=== PATIENT | male | born 1960 | race Caucasian/White ===

== ENCOUNTER 2016-11-27 10:18 | Inpatient (IN) | payer BC, MEDICARE ==
[2016-11-27] MEDS ORDERED: ACETAMINOPHEN TAB 500 MG TAB PO STA (10:37)
[2016-11-27] MEDS ORDERED: IPRATROPIUM-ALBUTEROL 3 ML NEB INHALATION STA (10:41)
--- NOTE | 2016-11-27 10:41 | ED ---
General Adult HPI - General Chief complaint: Shortness of Breath Stated complaint: Sent by PCP Chest Congestion Time Seen by Provider: 11/27/16 10:32 Source: patient, family, RN notes reviewed Mode of arrival: wheelchair Limitations: no limitations - History of Present Illness Initial comments: Patient is a pleasant 56-year-old male presenting to the emergency department complaining of difficulty in breathing. Patient has had cold symptoms for the past 7-10 days. Symptoms got worse from 3 days ago. Patient does have cough with brown to green sputum. Low-grade fevers. Patient does feel short of breath. Patient did go to his doctor's office who advised him to come to the emergency department. Patient did have similar symptoms once previously associated with pneumonia. No leg pain or leg swelling. - Related Data Home Medications Medication Instructions Recorded Confirmed Gemfibrozil [Lopid] 600 mg PO HS 12/08/13 11/27/16 Lisinopril [Zestril] 20 mg PO BID 12/08/13 11/27/16 Metoprolol Succinate [Toprol XL] 50 mg PO HS 12/08/13 11/27/16 amLODIPine [Norvasc] 5 mg PO DAILY 12/08/13 11/27/16 hydrALAZINE HCL [Apresoline] 50 mg PO TID 12/08/13 11/27/16 Aspirin 81 mg PO DAILY 08/28/14 11/27/16 Multivitamin [Men's Multi-Vitamin] 1 tab PO DAILY 06/03/15 11/27/16 Allergies Allergy/AdvReac Type Severity Reaction Status Date / Time No Known Allergies Allergy Verified 11/27/16 11:06 Review of Systems ROS Statement: Those systems with pertinent positive or pertinent negative responses have been documented in the HPI. ROS Other: All systems not noted in ROS Statement are negative. Constitutional: Reports: fever (Low-grade fevers) Eyes: Denies: eye pain ENT: Denies: ear pain, throat pain Respiratory: Reports: cough, dyspnea Cardiovascular: Denies: chest pain Endocrine: Reports: fatigue Gastrointestinal: Denies: abdominal pain Genitourinary: Denies: dysuria Musculoskeletal: Denies: back pain Skin: Denies: rash Neurological: Denies: headache Past Medical History Past Medical History: Deep Vein Thrombosis (DVT), Hyperlipidemia, Hypertension, Osteoarthritis (OA), Pneumonia, Pulmonary Embolus (PE) Additional Past Medical History / Comment(s): PE MAY 2016, DVT RIGHT LEG History of Any Multi-Drug Resistant Organisms: None Reported Past Surgical History: Bariatric Surgery, Heart Catheterization, Joint Replacement, Orthopedic Surgery Additional Past Surgical History / Comment(s): LAP BAND IN 2004 (BALLOON IS DEFLATED). rt shoulder surgery, raj knee arthroscopy, rt knee replacment, lt knee replacement, colonoscopy Past Anesthesia/Blood Transfusion Reactions: No Reported Reaction Additional Past Anesthesia/Blood Transfusion Reaction / Comment(s): was very itchy after spinal when rt knee was replaced Past Psychological History: No Psychological Hx Reported Smoking Status: Never smoker - Past Family History Father Family Medical History: No Reported History Additional Family Medical History / Comment(s): heatly at ge 83 Mother Family Medical History: No Reported History Additional Family Medical History / Comment(s): health at age 82 General Exam Limitations: no limitations General appearance: alert, in no apparent distress, obese Head exam: Present: atraumatic Eye exam: Present: normal appearance, PERRL ENT exam: Present: normal oropharynx Neck exam: Present: normal inspection Respiratory exam: Present: decreased breath sounds Cardiovascular Exam: Present: tachycardia GI/Abdominal exam: Present: soft. Absent: tenderness Extremities exam: Present: normal inspection. Absent: pedal edema, calf tenderness Neurological exam: Present: alert Psychiatric exam: Present: normal affect, normal mood Skin exam: Present: normal color Course Vital Signs 11/27/16 11/27/16 11/27/16 10:20 11:01 11:13 Temperature 100.0 F H Pulse Rate 110 H 102 H Respiratory 28 H 17 Rate Blood Pressure 147/81 O2 Sat by Pulse 83 L Oximetry 11/27/16 11/27/16 11/27/16 11:25 11:31 11:55 Temperature 98.3 F Pulse Rate 98 108 H 107 H Respiratory 20 18 Rate Blood Pressure 114/56 O2 Sat by Pulse 100 96 Oximetry 11/27/16 11/27/16 12:20 12:54 Temperature Pulse Rate 105 H 104 H Respiratory 20 18 Rate Blood Pressure 111/53 103/55 O2 Sat by Pulse 92 L 94 L Oximetry EKG Findings - EKG Comments: EKG Findings:: Sinus tachycardia 105. NE 158. QRS 148. QT 354. QTC 467. Normal axis. Left bundle branch block. Nonspecific ST-T. Medical Decision Making - Medical Decision Making Patient reevaluated and updated. Heparin started secondary to elevated troponin. Cardiology will be consult. Dr. Shipman has been paged for admission for Dr. Aguero. - Lab Data Result diagrams: 11/27/16 10:42 11/27/16 10:42 Lab Results 11/27/16 11/27/16 11/27/16 Range/Units 10:42 10:42 10:42 WBC 10.9 H (3.8-10.6) k/uL RBC 5.59 (4.30-5.90) m/uL Hgb 15.2 (13.0-17.5) gm/dL Hct 50.6 (39.0-53.0) % MCV 90.5 (80.0-100.0) fL MCH 27.2 (25.0-35.0) pg MCHC 30.0 L (31.0-37.0) g/dL RDW 16.7 H (11.5-15.5) % Plt Count 197 (150-450) k/uL Neutrophils % 82 % Lymphocytes % 7 % Monocytes % 9 % Eosinophils % 1 % Basophils % 1 % Neutrophils # 8.9 H (1.3-7.7) k/uL Lymphocytes # 0.7 L (1.0-4.8) k/uL Monocytes # 0.9 (0-1.0) k/uL Eosinophils # 0.1 (0-0.7) k/uL Basophils # 0.1 (0-0.2) k/uL Hypochromasia Marked Poikilocytosis Moderate Anisocytosis Slight PT 15.0 H (9.0-12.0) sec INR 1.5 H (<1.2) APTT 27.4 (22.0-30.0) sec Sodium 137 (137-145) mmol/L Potassium 4.2 (3.5-5.1) mmol/L Chloride 102 (98-107) mmol/L Carbon Dioxide 26 (22-30) mmol/L Anion Gap 9 mmol/L BUN 30 H (9-20) mg/dL Creatinine 1.14 (0.66-1.25) mg/dL Est GFR (MDRD) Af Amer >60 (>60 ml/min/1.73 sqM) Est GFR (MDRD) Non-Af >60 (>60 ml/min/1.73 sqM) Glucose 114 H (74-99) mg/dL Plasma Lactic Acid Pankaj (0.7-2.0) mmol/L Calcium 8.4 (8.4-10.2) mg/dL Total Bilirubin 1.1 (0.2-1.3) mg/dL AST 17 (17-59) U/L ALT 24 (21-72) U/L Alkaline Phosphatase 74 (38-126) U/L Total Creatine Kinase (55-170) U/L CK-MB (CK-2) (0.0-2.4) ng/mL CK-MB (CK-2) Rel Index Troponin I (0.000-0.034) ng/mL NT-Pro-B Natriuret Pep pg/mL Total Protein 6.5 (6.3-8.2) g/dL Albumin 3.2 L (3.5-5.0) g/dL Urine Color Urine Appearance (Clear) Urine pH (5.0-8.0) Ur Specific [place] (1.001-1.035) Urine Protein (Negative) Urine Glucose (UA) (Negative) Urine Ketones (Negative) Urine Blood (Negative) Urine Nitrite (Negative) Urine Bilirubin (Negative) Urine Urobilinogen (<2.0) mg/dL Ur Leukocyte Esterase (Negative) Urine RBC (0-5) /hpf Urine WBC (0-5) /hpf Ur Squamous Epith Cells (0-4) /hpf 11/27/16 11/27/16 11/27/16 Range/Units 10:42 10:42 10:42 WBC (3.8-10.6) k/uL RBC (4.30-5.90) m/uL Hgb (13.0-17.5) gm/dL Hct (39.0-53.0) % MCV (80.0-100.0) fL MCH (25.0-35.0) pg MCHC (31.0-37.0) g/dL RDW (11.5-15.5) % Plt Count (150-450) k/uL Neutrophils % % Lymphocytes % % Monocytes % % Eosinophils % % Basophils % % Neutrophils # (1.3-7.7) k/uL Lymphocytes # (1.0-4.8) k/uL Monocytes # (0-1.0) k/uL Eosinophils # (0-0.7) k/uL Basophils # (0-0.2) k/uL Hypochromasia Poikilocytosis Anisocytosis PT (9.0-12.0) sec INR (<1.2) APTT (22.0-30.0) sec Sodium (137-145) mmol/L Potassium (3.5-5.1) mmol/L Chloride (98-107) mmol/L Carbon Dioxide (22-30) mmol/L Anion Gap mmol/L BUN (9-20) mg/dL Creatinine (0.66-1.25) mg/dL Est GFR (MDRD) Af Amer (>60 ml/min/1.73 sqM) Est GFR (MDRD) Non-Af (>60 ml/min/1.73 sqM) Glucose (74-99) mg/dL Plasma Lactic Acid Pankaj 1.4 (0.7-2.0) mmol/L Calcium (8.4-10.2) mg/dL Total Bilirubin (0.2-1.3) mg/dL AST (17-59) U/L ALT (21-72) U/L Alkaline Phosphatase (38-126) U/L Total Creatine Kinase 136 (55-170) U/L CK-MB (CK-2) 2.6 H* (0.0-2.4) ng/mL CK-MB (CK-2) Rel Index 1.9 Troponin I 0.410 H* (0.000-0.034) ng/mL NT-Pro-B Natriuret Pep 4540 pg/mL Total Protein (6.3-8.2) g/dL Albumin (3.5-5.0) g/dL Urine Color Urine Appearance (Clear) Urine pH (5.0-8.0) Ur Specific [place] (1.001-1.035) Urine Protein (Negative) Urine Glucose (UA) (Negative) Urine Ketones (Negative) Urine Blood (Negative) Urine Nitrite (Negative) Urine Bilirubin (Negative) Urine Urobilinogen (<2.0) mg/dL Ur Leukocyte Esterase (Negative) Urine RBC (0-5) /hpf Urine WBC (0-5) /hpf Ur Squamous Epith Cells (0-4) /hpf 11/27/16 Range/Units 11:45 WBC (3.8-10.6) k/uL RBC (4.30-5.90) m/uL Hgb (13.0-17.5) gm/dL Hct (39.0-53.0) % MCV (80.0-100.0) fL MCH (25.0-35.0) pg MCHC (31.0-37.0) g/dL RDW (11.5-15.5) % Plt Count (150-450) k/uL Neutrophils % % Lymphocytes % % Monocytes % % Eosinophils % % Basophils % % Neutrophils # (1.3-7.7) k/uL Lymphocytes # (1.0-4.8) k/uL Monocytes # (0-1.0) k/uL Eosinophils # (0-0.7) k/uL Basophils # (0-0.2) k/uL Hypochromasia Poikilocytosis Anisocytosis PT (9.0-12.0) sec INR (<1.2) APTT (22.0-30.0) sec Sodium (137-145) mmol/L Potassium (3.5-5.1) mmol/L Chloride (98-107) mmol/L Carbon Dioxide (22-30) mmol/L Anion Gap mmol/L BUN (9-20) mg/dL Creatinine (0.66-1.25) mg/dL Est GFR (MDRD) Af Amer (>60 ml/min/1.73 sqM) Est GFR (MDRD) Non-Af (>60 ml/min/1.73 sqM) Glucose (74-99) mg/dL Plasma Lactic Acid Pankaj (0.7-2.0) mmol/L Calcium (8.4-10.2) mg/dL Total Bilirubin (0.2-1.3) mg/dL AST (17-59) U/L ALT (21-72) U/L Alkaline Phosphatase (38-126) U/L Total Creatine Kinase (55-170) U/L CK-MB (CK-2) (0.0-2.4) ng/mL CK-MB (CK-2) Rel Index Troponin I (0.000-0.034) ng/mL NT-Pro-B Natriuret Pep pg/mL Total Protein (6.3-8.2) g/dL Albumin (3.5-5.0) g/dL Urine Color Yellow Urine Appearance Clear (Clear) Urine pH 6.0 (5.0-8.0) Ur Specific [place] 1.018 (1.001-1.035) Urine Protein 1+ H (Negative) Urine Glucose (UA) Negative (Negative) Urine Ketones Negative (Negative) Urine Blood Negative (Negative) Urine Nitrite Negative (Negative) Urine Bilirubin Negative (Negative) Urine Urobilinogen 2.0 (<2.0) mg/dL Ur Leukocyte Esterase Negative (Negative) Urine RBC <1 (0-5) /hpf Urine WBC <1 (0-5) /hpf Ur Squamous Epith Cells 1 (0-4) /hpf - Radiology Data Radiology results: image reviewed (Chest x-ray consistent with CHF) Disposition Clinical Impression: Congestive heart failure Disposition: ADMITTED IP TO THIS [facility] Referrals: Jos Aguero III, MD [Primary Care Provider] - 1-2 days Decision Time: 13:11
[2016-11-27 11:02] LABS: Anisocytosis Slight; Basophils # (A) 0.1 k/uL (0-0.2); Basophils % (A) 1 %; CHCM 29.9; Eosinophils # (A) 0.1 k/uL (0-0.7); Eosinophils % (A) 1 %; HCT 50.6 % (39.0-53.0); HDW 4.07; HGB 15.2 gm/dL (13.0-17.5); Hypochromasia Marked; Luc # (Auto) 0.18; Luc % (Auto) 2; Lymphocytes # (A) 0.7 k/uL (1.0-4.8); Lymphocytes % (A) 7 %; MCH 27.2 pg (25.0-35.0); MCV 90.5 fL (80.0-100.0); Mean Platelet Volume 8.7; Monocytes # (A) 0.9 k/uL (0-1.0); Monocytes % (A) 9 %; Neutrophils # (A) 8.9 k/uL (1.3-7.7); Neutrophils % (A) 82 %; Poikilocytosis Moderate; RBC 5.59 m/uL (4.30-5.90); RDW 16.7 % (11.5-15.5); WBC 10.9 k/uL (3.8-10.6); WBC (Perox) 10.16
[2016-11-27 11:15] LABS: INR 1.5 (<1.2); Partial Thromboplastin Time 27.4 sec (22.0-30.0)
--- NOTE | 2016-11-27 11:21 | XR ---
EXAMINATION TYPE: XR chest 2V DATE OF EXAM: 11/27/2016 HISTORY: Fever. REFERENCE: Previous study dated 06/03/2015. FINDINGS: The heart is enlarged. There is vascular congestion and pulmonary edema. No definite pleura l fluid is seen. IMPRESSION: CHANGES MOST CONSISTENT WITH CONGESTIVE HEART FAILURE.
[2016-11-27 11:25] LABS: ALT 24 U/L (21-72); AST 17 U/L (17-59); Alkaline Phosphatase 74 U/L (38-126); Anion Gap 9 mmol/L; Blood Urea Nitrogen 30 mg/dL (9-20); Calcium 8.4 mg/dL (8.4-10.2); Carbon Dioxide 26 mmol/L (22-30); Chloride 102 mmol/L (98-107); Glucose 114 mg/dL (74-99); Non-African American GFR(MDRD) >60 (>60 ml/min/1.73 sqM); Potassium 4.2 mmol/L (3.5-5.1); Sodium 137 mmol/L (137-145); Total Bilirubin 1.1 mg/dL (0.2-1.3); Total Protein 6.5 g/dL (6.3-8.2)
[2016-11-27 11:44] LABS: Creatine Kinase MB 2.6 ng/mL (0.0-2.4); Troponin I 0.41 ng/mL (0.000-0.034)
[2016-11-27] MEDS ORDERED: HEPARIN SODIUM,PORCINE 5,000 UNIT/ML 1 ML VIAL IV ONE (12:01)
[2016-11-27] MEDS ORDERED: ASPIRIN 81 MG CHEW PO STA (12:01)
[2016-11-27] MEDS ORDERED: FUROSEMIDE 10 MG/ML 4 ML VIAL IV STA (12:01)
[2016-11-27] MEDS ORDERED: NITROGLYCERIN OINT 1 INCH/GM PACKET TOPICAL STA (12:01)
[2016-11-27] MEDS: HEPARIN SODIUM,PORCINE/D5W PMX 25,000 UNIT in DEXTROSE/WATER 1 500ML.BAG IV SCH (12:27)
[2016-11-27 12:29] LABS: Appearance,Urine Clear (Clear); Bilirubin,Urine Negative (Negative); Glucose,Urine (UA) Negative (Negative); Ketones,Urine Negative (Negative); Leukocyte Esterase,Urine Negative (Negative); Nitrite,Urine Negative (Negative); Particle Count 2379; Protein,Urine 1+ (Negative); RBC,Urine <1 /hpf (0-5); Specific Gravity,Urine 1.018 (1.001-1.035); Squamous Epithelial Cell,Urine 1 /hpf (0-4); UA Billing (MACRO vs. MICRO) MICRO; WBC,Urine <1 /hpf (0-5)
[2016-11-27] MEDS ORDERED: ASPIRIN 325 MG TAB PO STA (13:11)
[2016-11-27 15:52] LABS: Creatine Kinase MB 3.2 ng/mL (0.0-2.4); Troponin I 0.433 ng/mL (0.000-0.034)
[2016-11-27] MEDS: FUROSEMIDE 10 MG/ML 4 ML VIAL IV SCH (17:57)
[2016-11-27] MEDS: NITROGLYCERIN OINT 1 INCH/GM PACKET TOPICAL SCH ×2 (17:57→23:51)
[2016-11-28] MEDS: FUROSEMIDE 10 MG/ML 4 ML VIAL IV SCH ×4 (01:04→23:14)
[2016-11-28 01:57] LABS: Creatine Kinase MB 3.4 ng/mL (0.0-2.4)
[2016-11-28 01:58] LABS: Troponin I 0.397 ng/mL (0.000-0.034)
[2016-11-28] MEDS: ceFAZolin 2 GM in SODIUM CHLORIDE 0.9% 100 ML IVPB SCH ×4 (02:49→23:15)
[2016-11-28 07:26] LABS: Anisocytosis Slight; CH 26.7; CHCM 28.8; HCT 49.6 % (39.0-53.0); HDW 3.91; HGB 15.4 gm/dL (13.0-17.5); Hypochromasia Marked; MCHC 31.1 g/dL (31.0-37.0); MCV 93.2 fL (80.0-100.0); Mean Platelet Volume 9.2; Poikilocytosis Slight; RBC 5.32 m/uL (4.30-5.90); RDW 16.7 % (11.5-15.5); WBC 11.6 k/uL (3.8-10.6); WBC (Perox) 10.68
[2016-11-28 07:56] LABS: Add Differential Manual Differential
[2016-11-28 08:09] LABS: Nucleated Red Blood Cells 0 /100 WBC (0-0); Total Cells Counted 100
[2016-11-28 08:16] LABS: Manual Review Performed
[2016-11-28] MEDS ORDERED: ASPIRIN 325 MG TAB PO SCH (09:00)
[2016-11-28] MEDS: hydrALAZINE HCL 50 MG TAB PO SCH ×3 (09:04→23:14)
[2016-11-28] MEDS: LISINOPRIL 20 MG TAB PO SCH ×2 (09:04→19:55)
[2016-11-28] MEDS: amLODIPine 5 MG TAB PO SCH (09:05)
--- NOTE | 2016-11-28 09:13 | P.CRDCN ---
History of Present Illness Consult date: 11/28/16 Requesting physician: Lukas Shipman Consult reason: congestive heart failure Chief complaint: Cough and shortness of breath History of present illness: This is a 56-year-old gentleman who follows regularly with Dr. Chisholm in the office. He has a known history of hypertension, hyperlipidemia, morbid obesity, prior DVT and PE, nonischemic cardiomyopathy, heart cath was performed in 2005 which did not reveal any obstructive coronary artery disease. He presents to the hospital on this occasion with initial symptoms of an upper respiratory infection, he states that his had a very bad cold earlier last week, he started to get it on approximately . He states that he was coughing up green sputum, mild fever and chills, and progressively was getting more and more short of breath. He always has an element of peripheral edema however that also has been significantly worse. For this reason he came to the emergency room for further evaluation. EKG on arrival here showed a sinus tachycardia with a left bundle-branch block pattern. Temperature on arrival 100.0. Chest x-ray revealed congestive heart failure. White blood cell count 11.6, hemoglobin 15.4, potassium 4.2, BUN 30, creatinine 1.1. BNP level 4540. Troponins 0.41, 0.43, 0.39. Patient denies having any chest discomfort. The patient was initiated on IV Lasix in the emergency room, he states that he has been putting out significant amounts of urine. Patient had been on Xarelto as an outpatient for DVT and pulmonary embolism, this was apparently discontinued in December by his primary care physician. Past Medical History Past Medical History: Deep Vein Thrombosis (DVT), Hyperlipidemia, Hypertension, Osteoarthritis (OA), Pneumonia, Pulmonary Embolus (PE) Additional Past Medical History / Comment(s): PE MAY 2016, DVT RIGHT LEG History of Any Multi-Drug Resistant Organisms: None Reported Past Surgical History: Bariatric Surgery, Heart Catheterization, Joint Replacement, Orthopedic Surgery Additional Past Surgical History / Comment(s): LAP BAND IN 2004 (BALLOON IS DEFLATED). rt shoulder surgery, raj knee arthroscopy, rt knee replacment, lt knee replacement, colonoscopy/polypectomy-benign. Past Anesthesia/Blood Transfusion Reactions: No Reported Reaction Additional Past Anesthesia/Blood Transfusion Reaction / Comment(s): was very itchy after spinal when rt knee was replaced Smoking Status: Never smoker - Past Family History Father Family Medical History: No Reported History Additional Family Medical History / Comment(s): heatly at ge 83 Mother Family Medical History: No Reported History Additional Family Medical History / Comment(s): health at age 82 Medications and Allergies Home Medications Medication Instructions Recorded Confirmed Type Gemfibrozil [Lopid] 600 mg PO HS 12/08/13 11/27/16 History Lisinopril [Zestril] 20 mg PO BID 12/08/13 11/27/16 History Metoprolol Succinate [Toprol XL] 50 mg PO HS 12/08/13 11/27/16 History amLODIPine [Norvasc] 5 mg PO DAILY 12/08/13 11/27/16 History hydrALAZINE HCL [Apresoline] 50 mg PO TID 12/08/13 11/27/16 History Aspirin 81 mg PO DAILY 08/28/14 11/27/16 History Multivitamin [Men's Multi-Vitamin] 1 tab PO DAILY 06/03/15 11/27/16 History Allergies Allergy/AdvReac Type Severity Reaction Status Date / Time No Known Allergies Allergy Verified 11/27/16 11:06 Physical Exam Vitals: Vital Signs Temp Pulse Pulse Resp BP BP Pulse Ox 11/28/16 03:51 97 F L 82 16 120/67 91 L 11/28/16 03:50 18 11/28/16 00:00 84 18 110/67 91 L 11/27/16 20:00 97.8 F 89 18 116/57 91 L 11/27/16 18:48 98.9 F 108 H 18 136/70 91 L 11/27/16 15:06 99.0 F 109 H 18 93/48 94 L 11/27/16 14:27 108 H 17 97/47 94 L 11/27/16 13:30 104 H 17 108/54 93 L 11/27/16 12:54 104 H 18 103/55 94 L 11/27/16 12:20 105 H 20 111/53 92 L 11/27/16 11:55 98.3 F 107 H 18 114/56 96 11/27/16 11:31 108 H 11/27/16 11:25 98 20 100 11/27/16 11:13 102 H 11/27/16 11:01 17 11/27/16 10:20 100.0 F H 110 H 28 H 147/81 83 L Intake and Output 11/27/16 11/28/16 11/28/16 22:59 06:59 14:59 Intake Total 230.423 Output Total 850 1250 Balance -850 -1019.577 Intake: Intake, IV Titration 230.423 Amount Heparin Sodium,Porcine/ 230.423 D5w Pmx 25,000 unit In Dextrose/Water 1 500ml. bag @ 5.5 UNITS/KG/HR 19. 95 mls/hr IV .Q24H [facility] Rx #:[id number] Output: Urine 850 1250 Other: # Voids 4 Weight 184.6 kg PHYSICAL EXAMINATION: HEENT: Head is atraumatic, normocephalic. Pupils equal, round. Neck is supple. There is elevated jugular venous pressure. HEART EXAMINATION: Heart S1 and S2 systolic ejection murmur is heard CHEST EXAMINATION: On's reveal diminished air entry to bilateral bases with rales to the bases. ABDOMEN: Soft, obese, nontender. Bowel sounds are heard. No organomegaly noted. EXTREMITIES: 1+ peripheral pulses with 2+ evidence of peripheral edema . NEUROLOGIC patient is awake, alert and oriented -3. . Results 11/28/16 05:42 11/27/16 10:42 Cardiac Enzymes 11/27/16 11/27/16 11/27/16 Range/Units 10:42 10:42 14:44 AST 17 (17-59) U/L CK-MB (CK-2) 2.6 H* 3.2 H* (0.0-2.4) ng/mL Troponin I 0.410 H* 0.433 H* (0.000-0.034) ng/mL 11/28/16 Range/Units 00:53 AST (17-59) U/L CK-MB (CK-2) 3.4 H* (0.0-2.4) ng/mL Troponin I 0.397 H* (0.000-0.034) ng/mL Coagulation 11/27/16 11/27/16 11/28/16 Range/Units 10:42 18:49 05:42 PT 15.0 H (9.0-12.0) sec APTT 27.4 26.6 28.1 (22.0-30.0) sec CBC 11/27/16 11/28/16 Range/Units 10:42 05:42 WBC 10.9 H 11.6 H (3.8-10.6) k/uL RBC 5.59 5.32 (4.30-5.90) m/uL Hgb 15.2 15.4 (13.0-17.5) gm/dL Hct 50.6 49.6 (39.0-53.0) % Plt Count 197 191 (150-450) k/uL Comprehensive Metabolic Panel 11/27/16 Range/Units 10:42 Sodium 137 (137-145) mmol/L Potassium 4.2 (3.5-5.1) mmol/L Chloride 102 (98-107) mmol/L Carbon Dioxide 26 (22-30) mmol/L BUN 30 H (9-20) mg/dL Creatinine 1.14 (0.66-1.25) mg/dL Glucose 114 H (74-99) mg/dL Calcium 8.4 (8.4-10.2) mg/dL AST 17 (17-59) U/L ALT 24 (21-72) U/L Alkaline Phosphatase 74 (38-126) U/L Total Protein 6.5 (6.3-8.2) g/dL Albumin 3.2 L (3.5-5.0) g/dL Current Medications Generic Name Dose Route Start Last Admin Trade Name Freq PRN Reason Stop Dose Admin Amlodipine Besylate 5 mg 11/28/16 09:00 Norvasc PO DAILY [facility] Aspirin 325 mg 11/28/16 09:00 Aspirin PO DAILY [facility] Furosemide 40 mg 11/27/16 16:00 11/28/16 08:37 Lasix IV 40 mg Q8HR [facility] Administration Gemfibrozil 600 mg 11/28/16 21:00 Lopid PO HS [facility] Heparin Sodium (Porcine) 0 unit 11/27/16 12:01 Heparin IV PER PROTOCOL PRN Low PTT Protocol Hydralazine HCl 50 mg 11/28/16 09:00 Apresoline PO TID [facility] Heparin Sodium/Dextrose 25,000 500 mls @ 19.95 mls/hr 11/27/16 12:15 00:00 unit/ IV Solution IV 8.5 units/kg/hr .Q24H [facility] 30.84 mls/hr Protocol Titration 5.5 UNITS/KG/HR Cefazolin Sodium 2 gm/ Sodium 100 mls @ 100 mls/hr 11/28/16 02:00 11/28/16 08 :38 Chloride IVPB 100 mls/hr Q8HR [facility] Administration Lisinopril 20 mg 11/28/16 09:00 Zestril PO BID [facility] Metoprolol Succinate 50 mg 11/28/16 21:00 Toprol Xl PO HS [facility] Multivitamins 1 each 11/28/16 12:00 Theragran PO DAILY@1200 [facility] Nitroglycerin 1 inch 11/27/16 18:00 11/27/16 23:51 Nitro-Bid Oint TOPICAL Not Given QID [facility] Sodium Chloride 10 ml 11/27/16 21:00 11/27/16 23:51 Saline Flush IV Not Given BID [facility] Intake and Output 11/27/16 11/28/16 11/28/16 22:59 06:59 14:59 Intake Total 230.423 Output Total 850 1250 Balance -850 -1019.577 Intake: Intake, IV Titration 230.423 Amount Heparin Sodium,Porcine/ 230.423 D5w Pmx 25,000 unit In Dextrose/Water 1 500ml. bag @ 5.5 UNITS/KG/HR 19. 95 mls/hr IV .Q24H [facility] Rx #:[id number] Output: Urine 850 1250 Other: # Voids 4 Weight 184.6 kg 11/28/16 05:42 11/27/16 10:42 EKG Interpretations (text) EKG shows a sinus tachycardia with left bundle branch block pattern Assessment and Plan Plan: Assessment and plan #1 diastolic congestive cardiac failure acute on chronic #2 hypertension #3 hyperlipidemia #4 history of DVT with pulmonary embolism # 5 morbid obesity #6 upper respiratory infection, on IV antibiotics #7 abnormal troponins, likely secondary to oxygen supply and demand mismatch Plan We will repeat an echocardiogram with Doppler study. Continue diuresing with IV Lasix 40 mg every 8 hourly. Decrease aspirin to 81 mg daily. Discontinue Nitropaste. Obtain a d-dimer, rule out the possibility of recurrent pulmonary embolism. Further recommendations to follow. DNP note has been reviewed, I agree with a documented findings and plan of care. Patient was seen and examined.
--- NOTE | 2016-11-28 10:17 | ECHOF ---
Referral Reason:chf MEASUREMENTS -------- HEIGHT: 182.9 cm WEIGHT: 181.4 kg BP: 120/67 RVIDd: 4.3 cm (< 3.3) IVSd: 1.6 cm (0.6 - 1.1) LVIDd: 5.2 cm (3.9 - 5.3) LVPWd: 1.5 cm (0.6 - 1.1) IVSs: 1.9 cm LVIDs: 4.3 cm LVPWs: 1.8 cm LA Diam: 3.6 cm (2.7 - 3.8) LAESV Index (A-L): 33.67 ml/m Ao Diam: 3.2 cm (2.0 - 3.7) AV Cusp: 1.8 cm (1.5 - 2.6) MV EXCURSION: 21.085 mm (> 18.000) MV EF SLOPE: 147 mm/s (70 - 150) EPSS: 1.0 cm MV E Ok: 1.22 m/s MV DecT: 152 ms MV A Ok: 1.23 m/s MV E/A Ratio: 0.99 AV maxP.24 mmHg AV meanP.61 mmHg RAP: 15.00 mmHg RVSP: 40.53 mmHg FINDINGS -------- This was a technically difficult study with suboptimal views. The left ventricular size is normal. There is moderate concentric left ventricular hypertrophy. Overall left ventricular systolic function is mildly impaired with, an EF between 45 - 50 %. The right ventricle is severely enlarged. LA is midly dilated 29-33ml/m2. The right atrium was not well visualized. 1.5mg of Definity was utilized for enhancement of images There is mild aortic valve sclerosis. There is mild aortic stenosis present. Peak/mean gradient across the Aortic Valve is 18.24mmHg / 10.61mmHg. The mitral valve leaflets are mildly thickened. Mild mitral annular calcification present. There is trace to mild mitral regurgitation. Mild tricuspid regurgitation present. There is mild pulmonary hypertension. The right ventricular systolic pressure, as measured by Doppler, is 40.53mmHg. The pulmonic valve was not well visualized. The aortic root size is normal. The inferior vena cava is dilated with no significant inspiratory collapse which is consistent estimated right atrial pressure of >15 mmHg. There is no pericardial effusion. CONCLUSIONS -------- 1. This was a technically difficult study with suboptimal views. 2. There is mild aortic stenosis present. 3. Peak/mean gradient across the Aortic Valve is 18.24mmHg / 10.61mmHg. 4. The mitral valve leaflets are mildly thickened. 5. Mild mitral annular calcification present. 6. There is trace to mild mitral regurgitation. 7. Mild tricuspid regurgitation present. 8. There is mild pulmonary hypertension. 9. The right ventricular systolic pressure, as measured by Doppler, is 40.53mmHg. 10. The pulmonic valve was not well visualized. 11. The aortic root size is normal. 12. The left ventricular size is normal. 13. The inferior vena cava is dilated with no significant inspiratory collapse which is consistent estimated right atrial pressure of >20 mmHg. 14. There is no pericardial effusion. 15. There is moderate concentric left ventricular hypertrophy. 16. Overall left ventricular systolic function is mildly impaired with, an EF between 45 - 50 %. 17. The right ventricle is severely enlarged. 18. LA is midly dilated 29-33ml/m2. 19. The right atrium was not well visualized. 20. 1.5mg of Definity was utilized for enhancement of images 21. There is mild aortic valve sclerosis. LENGTH CONTROL TESTER: Teresa Thomas RDCS
[2016-11-28] MEDS: NITROGLYCERIN OINT 1 INCH/GM PACKET TOPICAL SCH (10:22)
[2016-11-28] MEDS: HEPARIN SODIUM,PORCINE 5,000 UNIT/ML 1 ML VIAL IV PRN ×2 (12:01→19:20)
[2016-11-28] MEDS: MULTIVITAMINS, THERA 1 EACH TAB PO SCH (12:06)
[2016-11-28] MEDS ORDERED: RX INFO: IV CONTRAST WAS GIVEN 1 EACH MISC MISCELLANE PRN (13:02)
--- NOTE | 2016-11-28 14:03 | HP ---
DATE OF ADMISSION: 11/27/16 CHIEF COMPLAINT: Bilateral leg swelling and shortness of breath. HISTORY OF PRESENT ILLNESS: This is a 56-year-old gentleman with a past medical history of DVT, hypertension, hyperlipidemia, history of DJD, history of pneumonia, history of pulmonary embolism, history of bariatric surgery, being followed by Dr. Aguero in the outpatient setting was complaining of increasing shortness of breath and some cough and congestion. The cough was associated with brown, green sputum. The patient also had some low grade fevers. The patient came to [facility] for further evaluation and treatment. The patient also had bilateral leg swelling also. Congestive heart failure was suspected. The patient was given diuretics. The patient is being closely monitored at this time. The initial evaluation showed NT-ProBNP of 4540. White count elevated to 10.9. There is no history of any headache, loss of consciousness or seizures. Past medical history of DVT, hypertension, hyperlipidemia, DJD, pneumonia, pulmonary embolism, bariatric surgery. Medications prior to admission are: 1. Metoprolol 50 mg q.h.s. 2. Lopid 600 mg q.h.s. 3. Apresoline 50 mg t.i.d. 4. Norvasc 5 mg daily. 5. Multivitamins one po daily. 6. Zestril 20 mg b.i.d. 7. Aspirin 81 mg daily. ALLERGIES: None. FAMILY HISTORY: No history of heart disease or strokes in the family. SOCIAL HISTORY: No history of smoking. Occasional alcohol intake. REVIEW OF SYSTEMS: ENT: No diminished vision. No diminished hearing. Cardiovascular: As mentioned earlier. Respiratory: No cough, hemoptysis. GI: No nausea or vomiting. : No dysuria. Nervous system: No numbness or weakness. Allergy/Immunology: No asthma or hayfever. Musculoskeletal: As mentioned earlier. Hematology/Oncology: No history of anemia. Endocrine: No history of diabetes mellitus or hypothyroidism. Constitutional: As mentioned earlier. Dermatology: Negative. Rheumatology: Negative. Psychiatry: As mentioned earlier. PHYSICAL EXAMINATION: Alert and oriented times three. Pulse 84. Blood pressure 120/69. Respiratory rate 18, temperature 97.8. Pulse ox 91% on 3 L. HEENT: Conjunctivae normal. Oral mucosa moist. NECK: No JVD. No carotid bruit. Cardiovascular: S1, S2 muffled. No S3, no S4. Respiratory: Breath sounds diminished at the bases. Scattered rhonchi and crackles. Abdomen is soft. Obese. Nontender. No mass palpable. Legs: Bilateral leg edema. cellulitis also present. Nervous system: Higher functions as mentioned earlier. Moves all four limbs. No focal motor or sensory deficits. Lymphatics: No lymph nodes palpable in the neck, axillae or groin. Joints: No active deforming arthropathy. SKIN: No ulcer, rash or bleeding. LABS: WBC 10.9, otherwise troponin 0.041, albumin 3.2. ASSESSMENT: 1. Shortness of breath, possible congestive heart failure acute exacerbation. 2. Troponin 0.433, possibly rule out acute non-ST segment myocardial infarction. 3. Acute cellulitis of both legs. 4. Increased WBC. 5. Morbid obesity with BMI 54.2. 6. Deep venous thrombosis. 7. History of pulmonary embolism. 8. History of degenerative joint disease. 9. History of pneumonia. 10. History of hypertension. 11. History of hyperlipidemia. 12. History of lap band surgery. RECOMMENDATIONS AND DISCUSSION: In this 56-year-old gentleman who presented with multiple complex medical issues, we will monitor the patient closely. Continue the current medications. Continue symptomatic treatment. We will initiate IV heparin as well as IV Lasix. 2D echo with Doppler will be ordered. Cardiology has been consulted. Repeat labs also will be ordered. I would also recommend empiric antibiotics for cellulitis. Otherwise prognosis is guarded because of the . Otherwise continue to monitor. Home medications will be adjusted. Discussed with the patient, understands and agrees. A copy of dictation is being forwarded to Dr. Aguero who is the primary physician. [facility]
--- NOTE | 2016-11-28 16:07 | CT ---
EXAMINATION TYPE: CT angio chest DATE OF EXAM: 11/28/2016 COMPARISON: NONE HISTORY: Shortness of breath CONTRAST: CT chest with contrast and 3D reconstruction with MIP imaging injected with 80ml of omni 350 Contrast-enhanced CT of the chest was performed through the course of the pulmonary arteries with reji g and mediastinal window settings submitted. 3D reconstruction with MIP imaging was also performed. PULMONARY ARTERIES: Limited by timing of the contrast bolus. Large central embolus is not seen with c ertainty. Peripheral embolism would be difficult to exclude. Prominence of the pulmonary arteries may reflect pulmonary arterial hypertension. LUNGS: Basilar atelectasis noted. No evidence for atelectasis. Scattered pulmonary nodules. No pleura l effusion. MEDIASTINUM: Thoracic aorta is of normal caliber . The heart is not enlarged. No evidence for media stinal mass. No mediastinal lymph nodes greater than 1cm. HILAR STRUCTURES: No evidence for mass. No hilar lymph nodes greater than 1 cm. UPPER ABDOMEN: No significant abnormality is seen. IMPRESSION: 1. Limited by timing of the contrast bolus. Large central embolus is not seen with certainty. It is difficult to exclude peripheral emboli. 2. Scattered pulmonary nodules as well as basilar compressive atelectasis.
[2016-11-28] MEDS: HEPARIN SODIUM,PORCINE/D5W PMX 25,000 UNIT in DEXTROSE/WATER 1 500ML.BAG IV SCH ×2 (17:22→19:23)
[2016-11-28] MEDS: GEMFIBROZIL 600 MG TAB PO SCH (19:55)
[2016-11-28] MEDS: METOPROLOL SUCCINATE (ER) 50 MG TAB.ER.24H PO SCH (19:55)
[2016-11-29 06:38] LABS: Anion Gap 9 mmol/L; Blood Urea Nitrogen 25 mg/dL (9-20); Calcium 8.6 mg/dL (8.4-10.2); Carbon Dioxide 33 mmol/L (22-30); Chloride 99 mmol/L (98-107); Glucose 106 mg/dL (74-99); Non-African American GFR(MDRD) >60 (>60 ml/min/1.73 sqM); Potassium 4.7 mmol/L (3.5-5.1); Sodium 141 mmol/L (137-145)
[2016-11-29 07:13] LABS: Anisocytosis Slight; Basophils % (A) 1 %; CH 26.5; CHCM 28.8; Eosinophils # (A) 0.2 k/uL (0-0.7); Eosinophils % (A) 2 %; HCT 51.7 % (39.0-53.0); HDW 3.96; HGB 15.3 gm/dL (13.0-17.5); Hypochromasia Marked; Luc # (Auto) 0.17; Luc % (Auto) 2; Lymphocytes # (A) 0.8 k/uL (1.0-4.8); Lymphocytes % (A) 9 %; MCH 27.3 pg (25.0-35.0); MCHC 29.5 g/dL (31.0-37.0); MCV 92.4 fL (80.0-100.0); Mean Platelet Volume 8.9; Monocytes # (A) 0.7 k/uL (0-1.0); Monocytes % (A) 8 %; Neutrophils # (A) 6.3 k/uL (1.3-7.7); Neutrophils % (A) 78 %; Poikilocytosis Slight; RBC 5.59 m/uL (4.30-5.90); RDW 16.4 % (11.5-15.5); WBC 8.2 k/uL (3.8-10.6); WBC (Perox) 7.54
[2016-11-29 07:42] LABS: Polychromasia Present
[2016-11-29 07:45] LABS: Manual Review Performed
[2016-11-29] MEDS: MULTIVITAMINS, THERA 1 EACH TAB PO SCH (08:40)
[2016-11-29] MEDS: ASPIRIN 81 MG CHEW PO SCH (08:40)
[2016-11-29] MEDS: ceFAZolin 2 GM in SODIUM CHLORIDE 0.9% 100 ML IVPB SCH ×3 (08:40→23:16)
[2016-11-29] MEDS: amLODIPine 5 MG TAB PO SCH (08:40)
[2016-11-29] MEDS: FUROSEMIDE 10 MG/ML 4 ML VIAL IV SCH ×3 (08:40→23:15)
[2016-11-29] MEDS: LISINOPRIL 20 MG TAB PO SCH ×2 (08:40→20:07)
[2016-11-29] MEDS: hydrALAZINE HCL 50 MG TAB PO SCH ×3 (08:40→20:08)
[2016-11-29 12:18] VITALS: BMI 53.7
--- NOTE | 2016-11-29 13:19 | XR ---
EXAMINATION TYPE: XR chest 1V portable DATE OF EXAM: 11/29/2016 COMPARISON: Prior chest x-ray 11/27/2016, chest CT 11/28/2016 HISTORY: Congestive heart failure, cough and congestion TECHNIQUE: Single frontal view of the chest is obtained. FINDINGS: Central vascularity and interstitium are prominent, there is mixed airspace disease. The h eart is enlarged. No pneumothorax or evident effusion. There are overlying cardiac leads. IMPRESSION: Findings compatible with congestive heart failure. There may be some worsening pulmonary edema. Correlate to exclude pneumonia.
--- NOTE | 2016-11-29 14:50 | PN ---
DATE OF SERVICE: 11/28/16 This 56-year-old gentleman admitted with CHF acute exacerbation is being closely monitored. The patient is on IV Lasix at this time. The 2D echo with Doppler showed ejection fraction 45 to 50% as well as IVC dilatation. There is no history of any fevers, rigors or chills. No history of headache, loss of consciousness or seizures. Mild aortic stenosis was also noted. On exam, alert and oriented times three. Pulse is 96. Blood pressure is 108/ 50. Respiratory rate 18. Temperature 97.7, pulse ox 97% on 4 L. HEENT: Conjunctivae normal. NECK: No JVD. Cardiovascular: S1, S2 muffled. Respiratory: Breath sounds diminished at the bases. A few scattered rhonchi and no crackles. Abdomen is soft. Nontender. Legs: bilateral leg swelling and cellulitis also present. The labs are noted. Chest CTA reviewed, showed limited timing. Scattered pulmonary nodules. FINAL ASSESSMENT: 1. Congestive heart failure, acute exacerbation with acute on chronic systolic dysfunction, ejection fraction 40 to 45%. 2. Troponin 0.433 rule out acute non-ST elevation myocardial infarction. 3. Acute cellulitis of both legs. 4. Increased WBC. 5. Morbid obesity with BMI 54.2. 6. Deep venous thrombosis history. 7. Pulmonary embolism. 8. History of degenerative joint disease. 9. History of pneumonia. 10. Hypertension. 11. History of hyperlipidemia. 12. History of lap band surgery. RECOMMENDATIONS AND DISCUSSION: Recommend to continue the current medications, continue with monitoring and symptomatic treatment. Continue with Lasix. Closely follow with cardiology. Continue with empiric antibiotics. Continue beta blockers and [place] inhibitors. Further recommendations to follow. Fluid restriction also has been recommended. MTDD
--- NOTE | 2016-11-29 15:14 | P.PN ---
Subjective This is a 56-year-old gentleman who follows regularly with Dr. Chisholm in the office. He has a known history of hypertension, hyperlipidemia, morbid obesity, prior DVT and PE, nonischemic cardiomyopathy, heart cath was performed in 2005 which did not reveal any obstructive coronary artery disease. He presents to the hospital on this occasion with initial symptoms of an upper respiratory infection, he states that his had a very bad cold earlier last week, he started to get it on approximately . He states that he was coughing up green sputum, mild fever and chills, and progressively was getting more and more short of breath. He always has an element of peripheral edema however that also has been significantly worse. For this reason he came to the emergency room for further evaluation. EKG on arrival here showed a sinus tachycardia with a left bundle-branch block pattern. Temperature on arrival 100.0. Chest x-ray revealed congestive heart failure. White blood cell count 11.6, hemoglobin 15.4, potassium 4.2, BUN 30, creatinine 1.1. BNP level 4540. Troponins 0.41, 0.43, 0.39. Patient denies having any chest discomfort. The patient was initiated on IV Lasix in the emergency room, he states that he has been putting out significant amounts of urine. Patient had been on Xarelto as an outpatient for DVT and pulmonary embolism, this was apparently discontinued in December by his primary care physician. 11/29/2016. Patient was seen and examined this morning, overall he is feeling better. CT of the chest was performed which ruled out any large pulmonary embolism. His Xarelto was actually discontinued by Dr. Rosa or heat are as an outpatient we will have them see the patient in consult here and determine whether or not the patient should be reinitiated on blood thinners here. His weight is down 5 kg today, BUN 25, creatinine 1.0. Objective - Vital Signs Vital signs: Vital Signs Temp 98.6 F 11/29/16 12:00 Pulse 83 11/29/16 12:00 Resp 18 11/29/16 12:00 BP 126/60 11/29/16 12:00 Pulse Ox 91 L 11/29/16 12:00 Intake & Output 11/28/16 11/29/16 11/29/16 18:59 06:59 18:59 Intake Total 1029.577 838.321 540 Output Total 2100 1475 450 Balance -1070.423 -876.679 90 Weight 179.7 kg 179.7 kg Intake: Intake, IV Titration 369.577 358.321 Amount Heparin Sodium,Porcine/ 269.577 358.321 D5w Pmx 25,000 unit In Dextrose/Water 1 500ml. bag @ 5.5 UNITS/KG/HR 19. 95 mls/hr IV .Q24H [facility] Rx #:[id number] ceFAZolin 2 gm In Sodium 100 Chloride 0.9% 100 ml @ 100 mls/hr IVPB Q8HR [facility] Rx#:[id number] Oral 660 480 540 Output: Urine 2100 1475 450 Other: Voiding Method Urinal # Voids 2 1 # Bowel Movements 0 0 - Exam PHYSICAL EXAMINATION: HEENT: Head is atraumatic, normocephalic. Pupils equal, round. Neck is supple. There is elevated jugular venous pressure. HEART EXAMINATION: Heart S1 and S2 systolic ejection murmur is heard CHEST EXAMINATION: On's reveal diminished air entry to bilateral bases with rales to the bases. ABDOMEN: Soft, obese, nontender. Bowel sounds are heard. No organomegaly noted. EXTREMITIES: 1+ peripheral pulses with 2+ evidence of peripheral edema . NEUROLOGIC patient is awake, alert and oriented -3. - Labs CBC & Chem 7: 11/29/16 06:02 11/29/16 06:02 Labs: Abnormal Lab Results - Last 24 Hours (Table) 11/28/16 11/29/16 11/29/16 Range/Units 18:00 00:51 06:02 MCHC 29.5 L (31.0-37.0) g/dL RDW 16.4 H (11.5-15.5) % Lymphocytes # 0.8 L (1.0-4.8) k/uL APTT 32.9 H 37.7 H (22.0-30.0) sec Carbon Dioxide (22-30) mmol/L BUN (9-20) mg/dL Glucose (74-99) mg/dL 11/29/16 Range/Units 06:02 MCHC (31.0-37.0) g/dL RDW (11.5-15.5) % Lymphocytes # (1.0-4.8) k/uL APTT (22.0-30.0) sec Carbon Dioxide 33 H (22-30) mmol/L BUN 25 H (9-20) mg/dL Glucose 106 H (74-99) mg/dL Microbiology - Last 24 Hours (Table) 11/27/16 10:42 Blood Culture - Preliminary Blood No Growth after 48 hours 11/27/16 11:45 Urine Culture - Final Urine,Voided 11/27/16 14:44 Blood Culture - Preliminary Blood No Growth after 24 hours Assessment and Plan Plan: Assessment and plan #1 diastolic congestive cardiac failure acute on chronic #2 hypertension #3 hyperlipidemia #4 history of DVT with pulmonary embolism # 5 morbid obesity #6 upper respiratory infection, on IV antibiotics #7 abnormal troponins, likely secondary to oxygen supply and demand mismatch Plan Cardiac gram with Doppler study was performed which revealed an ejection fraction of 45-50%. We will continue current dose of IV Lasix. CT of the chest ruled out any large pulmonary embolism, nondiagnostic for a possible small PE. We will consult pulmonary who had initially discontinued his Xarelto after his PE to see whether or not the patient should be reinitiated on at this time. DNP note has been reviewed, I agree with a documented findings and plan of care. Patient was seen and examined.
[2016-11-29] MEDS ORDERED: DEXTROSE 5% IN WATER 100 ML with AMIODARONE 150 MG IV ONE (16:18)
[2016-11-29] MEDS: AMIODARONE 450 MG in DEXTROSE 5% IN WATER 250 ML IV SCH ×4 (17:45→23:16)
[2016-11-29] MEDS: GEMFIBROZIL 600 MG TAB PO SCH (20:07)
[2016-11-29] MEDS: METOPROLOL SUCCINATE (ER) 50 MG TAB.ER.24H PO SCH (20:08)
[2016-11-29] MEDS: HEPARIN SODIUM,PORCINE/D5W PMX 25,000 UNIT in DEXTROSE/WATER 1 500ML.BAG IV SCH (23:35)
[2016-11-30 06:20] LABS: Anisocytosis Slight; CH 26.7; HCT 51.3 % (39.0-53.0); HDW 3.88; HGB 14.9 gm/dL (13.0-17.5); Hypochromasia Marked; MCH 26.7 pg (25.0-35.0); MCV 92.1 fL (80.0-100.0); Mean Platelet Volume 8.4; Poikilocytosis Slight; RBC 5.57 m/uL (4.30-5.90); RDW 16.5 % (11.5-15.5); WBC (Perox) 7.14
[2016-11-30 06:37] LABS: Add Differential Manual Differential
[2016-11-30 06:40] LABS: Nucleated Red Blood Cells 2 /100 WBC (0-0); Total Cells Counted 200
[2016-11-30 06:41] LABS: Manual Review Performed; WBC 7.5 k/uL (3.8-10.6)
[2016-11-30 06:52] LABS: Anion Gap 7 mmol/L; Blood Urea Nitrogen 21 mg/dL (9-20); Calcium 8.3 mg/dL (8.4-10.2); Carbon Dioxide 30 mmol/L (22-30); Chloride 102 mmol/L (98-107); Glucose 107 mg/dL (74-99); Non-African American GFR(MDRD) >60 (>60 ml/min/1.73 sqM); Potassium 4.2 mmol/L (3.5-5.1); Sodium 139 mmol/L (137-145)
[2016-11-30] MEDS: HEPARIN SODIUM,PORCINE/D5W PMX 25,000 UNIT in DEXTROSE/WATER 1 500ML.BAG IV SCH (07:10)
[2016-11-30] MEDS: amLODIPine 5 MG TAB PO SCH (08:19)
[2016-11-30] MEDS: FUROSEMIDE 10 MG/ML 4 ML VIAL IV SCH (08:19)
[2016-11-30] MEDS: hydrALAZINE HCL 50 MG TAB PO SCH ×3 (08:19→21:39)
[2016-11-30] MEDS: ASPIRIN 81 MG CHEW PO SCH (08:19)
[2016-11-30] MEDS: ceFAZolin 2 GM in SODIUM CHLORIDE 0.9% 100 ML IVPB SCH ×3 (08:19→23:22)
[2016-11-30] MEDS: LISINOPRIL 20 MG TAB PO SCH ×2 (08:19→21:38)
[2016-11-30] MEDS: AMIODARONE 450 MG in DEXTROSE 5% IN WATER 250 ML IV SCH ×2 (08:20)
--- NOTE | 2016-11-30 09:48 | P.PN ---
Subjective Date of service 11/29/2016. Personal being dictated for Dr. Judd. Interval history: This is a 56-year-old gentleman admitted with acute CHF exacerbation, cellulitis and multiple other medical issues. Patient has history of DVT and PE, states that Xarelto was discontinued approximately 1 year ago. Chest CTA Limited study, reporting large central embolus possibly with possible peripheral emboli, scattered pulmonary nodules and basilar compressive atelectasis. Maintained on heparin drip and Lasix IV push. Diuresing well with 24-hour I&O reflecting a negative fluid balance. Any bleeding with cane to bathroom, desats with exertion. Productive cough, green sputum. Denies chest pain, or palpitations. Afebrile. Objective - Vital Signs Vital signs: Vital Signs Temp 98.2 F 11/29/16 15:37 Pulse 83 11/29/16 15:37 Resp 18 11/29/16 15:37 BP 132/63 11/29/16 15:37 Pulse Ox 90 L 11/29/16 15:37 Intake & Output 11/28/16 11/29/16 11/29/16 18:59 06:59 18:59 Intake Total 1029.577 838.321 540 Output Total 2100 1475 450 Balance -1070.423 -636.679 90 Weight 179.7 kg 179.7 kg Intake: Intake, IV Titration 369.577 358.321 Amount Heparin Sodium,Porcine/ 269.577 358.321 D5w Pmx 25,000 unit In Dextrose/Water 1 500ml. bag @ 5.5 UNITS/KG/HR 19. 95 mls/hr IV .Q24H [facility] Rx #:[id number] ceFAZolin 2 gm In Sodium 100 Chloride 0.9% 100 ml @ 100 mls/hr IVPB Q8HR [facility] Rx#:[id number] Oral 660 480 540 Output: Urine 2100 1475 450 Other: Voiding Method Urinal # Voids 2 1 # Bowel Movements 0 0 - Exam PHYSICAL EXAM: VITAL SIGNS: As above GENERAL: [Sitting up in bed, no acute distress] HEENT: [Pupils equal conjunctiva normal.] NECK: [Supple, positive JVD] RESPIRATORY EFFORT:[ mildly Increased] LUNGS: [Bilateral bases diminished, scattered rhonchi, fine bibasilar crackles , no wheezing] CARDIOVASCULAR[ regular S1 and S2, positive systolic murmur, no rubs or gallops , positive edema] GI: [Abdomen soft, nontender, positive bowel sounds.] PSYCH: [Alert and oriented -3, mood and affect normal.] SKIN: [Bilateral leg swelling with cellulitis-improving erythema] NEURO: No focal deficits, moves all 4 extremities, strength and sensation grossly intact - Labs CBC & Chem 7: 11/30/16 05:53 11/30/16 05:53 Labs: Abnormal Lab Results - Last 24 Hours (Table) 11/28/16 11/29/16 11/29/16 Range/Units 18:00 00:51 06:02 MCHC 29.5 L (31.0-37.0) g/dL RDW 16.4 H (11.5-15.5) % Lymphocytes # 0.8 L (1.0-4.8) k/uL APTT 32.9 H 37.7 H (22.0-30.0) sec Carbon Dioxide (22-30) mmol/L BUN (9-20) mg/dL Glucose (74-99) mg/dL 11/29/16 Range/Units 06:02 MCHC (31.0-37.0) g/dL RDW (11.5-15.5) % Lymphocytes # (1.0-4.8) k/uL APTT (22.0-30.0) sec Carbon Dioxide 33 H (22-30) mmol/L BUN 25 H (9-20) mg/dL Glucose 106 H (74-99) mg/dL Microbiology - Last 24 Hours (Table) 11/27/16 10:42 Blood Culture - Preliminary Blood No Growth after 48 hours 11/27/16 11:45 Urine Culture - Final Urine,Voided 11/27/16 14:44 Blood Culture - Preliminary Blood No Growth after 24 hours Assessment and Plan Plan: 1. [ Acute on chronic congestive heart failure, systolic dysfunction, EF 45-50%] . 2. [ Troponin 0.433, rule out acute non-STEMI]. 3. [ Acute cellulitis of Bilateral legs]. 4. [ Morbid obesity, BMI 54.2]. 5. [ Pulmonary embolism]. Plan: Continue on current medication regime , antibiotics, monitoring and symptomatic treatment. Continue on Lasix IV push and heparin drip. Maintain fluid restriction. Sputum culture to be obtained. Chest CT in-conclusive, Pulmonary consult in place, recommendations pending regarding anticoagulation. Further recommendations to follow. The impression and plan of care has been dictated as directed. : I performed a H&P examination of this patient and discussed the same with the dictator. I agree with the dictator's note. Any additional findings/opinions/ etc. will be noted.
[2016-11-30] MEDS: MULTIVITAMINS, THERA 1 EACH TAB PO SCH (12:10)
--- NOTE | 2016-11-30 12:17 | P.PN ---
Subjective This is a 56-year-old gentleman who follows regularly with Dr. Chisholm in the office. He has a known history of hypertension, hyperlipidemia, morbid obesity, prior DVT and PE, nonischemic cardiomyopathy, heart cath was performed in 2005 which did not reveal any obstructive coronary artery disease. He presents to the hospital on this occasion with initial symptoms of an upper respiratory infection, he states that his had a very bad cold earlier last week, he started to get it on approximately . He states that he was coughing up green sputum, mild fever and chills, and progressively was getting more and more short of breath. He always has an element of peripheral edema however that also has been significantly worse. For this reason he came to the emergency room for further evaluation. EKG on arrival here showed a sinus tachycardia with a left bundle-branch block pattern. Temperature on arrival 100.0. Chest x-ray revealed congestive heart failure. White blood cell count 11.6, hemoglobin 15.4, potassium 4.2, BUN 30, creatinine 1.1. BNP level 4540. Troponins 0.41, 0.43, 0.39. Patient denies having any chest discomfort. The patient was initiated on IV Lasix in the emergency room, he states that he has been putting out significant amounts of urine. Patient had been on Xarelto as an outpatient for DVT and pulmonary embolism, this was apparently discontinued in December by his primary care physician. 11/29/2016. Patient was seen and examined this morning, overall he is feeling better. CT of the chest was performed which ruled out any large pulmonary embolism. His Xarelto was actually discontinued by Dr. Rosa or heat are as an outpatient we will have them see the patient in consult here and determine whether or not the patient should be reinitiated on blood thinners here. His weight is down 5 kg today, BUN 25, creatinine 1.0. 11/30/2016 Patient seen and examined this morning, overall feeling much better. Last evening patient had an episode of atrial flutter with rapid ventricular response and he was initiated on IV amiodarone. This morning has converted back to normal sinus rhythm. Patient will require anticoagulation for stroke prevention. He will be initiated on Eliquis today and we will check picture he has coverage. We will discontinue the IV Lasix and place the patient on oral diuretics, discontinue IV amiodarone once it's finished and start the patient on oral. Objective - Vital Signs Vital signs: Vital Signs Temp 99.4 F 11/30/16 08:00 Pulse 75 11/30/16 12:00 Resp 19 11/30/16 12:00 BP 132/60 11/30/16 12:00 Pulse Ox 93 L 11/30/16 12:00 Intake & Output 11/29/16 11/30/16 11/30/16 18:59 06:59 18:59 Intake Total 960 723.098 372.229 Output Total 450 1975 400 Balance 510 -1251.902 -27.771 Weight 179.7 kg 183 kg Intake: Intake, IV Titration 723.098 192.229 Amount Amiodarone 450 mg In 183.871 151.051 Dextrose 5% in Water 250 ml @ 1 MG/MIN 33.33 mls/ hr IV .Q7H31M [facility] Rx#: [id number] Heparin Sodium,Porcine/ 439.227 41.178 D5w Pmx 25,000 unit In Dextrose/Water 1 500ml. bag @ 5.5 UNITS/KG/HR 19. 95 mls/hr IV .Q24H [facility] Rx #:[id number] ceFAZolin 2 gm In Sodium 100 Chloride 0.9% 100 ml @ 100 mls/hr IVPB Q8HR [facility] Rx#:[id number] Oral 960 180 Output: Urine 450 1975 400 Other: Voiding Method Urinal Urinal # Voids 1 1 # Bowel Movements 0 - Exam PHYSICAL EXAMINATION: HEENT: Head is atraumatic, normocephalic. Pupils equal, round. Neck is supple. There is elevated jugular venous pressure. HEART EXAMINATION: Heart S1 and S2 systolic ejection murmur is heard CHEST EXAMINATION: Lungs reveal improvement in air entry bilaterally. ABDOMEN: Soft, obese, nontender. Bowel sounds are heard. No organomegaly noted. EXTREMITIES: 1+ peripheral pulses with 1+ evidence of peripheral edema . NEUROLOGIC patient is awake, alert and oriented -3. - Labs CBC & Chem 7: 11/30/16 05:53 11/30/16 05:53 Labs: Abnormal Lab Results - Last 24 Hours (Table) 11/29/16 11/30/16 11/30/16 Range/Units 15:54 05:53 05:53 MCHC 29.0 L (31.0-37.0) g/dL RDW 16.5 H (11.5-15.5) % Lymphocytes # (Manual) 0.4 L (1.0-4.8) k/uL Nucleated RBCs 2 H (0-0) /100 WBC APTT 47.1 H (22.0-30.0) sec BUN 21 H (9-20) mg/dL Glucose 107 H (74-99) mg/dL Calcium 8.3 L (8.4-10.2) mg/dL 11/30/16 Range/Units 05:53 MCHC (31.0-37.0) g/dL RDW (11.5-15.5) % Lymphocytes # (Manual) (1.0-4.8) k/uL Nucleated RBCs (0-0) /100 WBC APTT 51.2 H (22.0-30.0) sec BUN (9-20) mg/dL Glucose (74-99) mg/dL Calcium (8.4-10.2) mg/dL Microbiology - Last 24 Hours (Table) 11/27/16 14:44 Blood Culture - Preliminary Blood No Growth after 48 hours 11/27/16 10:42 Blood Culture - Preliminary Blood No Growth after 48 hours Assessment and Plan Plan: Assessment and plan #1 diastolic congestive cardiac failure acute on chronic #2 hypertension #3 hyperlipidemia #4 history of DVT with pulmonary embolism # 5 morbid obesity #6 upper respiratory infection, on IV antibiotics #7 abnormal troponins, likely secondary to oxygen supply and demand mismatch Plan From cardiology's perspective, we'll discontinue the IV heparin and initiate TeleQuest 5 mg one tablet by mouth twice a day. Once the IV amiodarone is discontinued, we will start the patient on oral amiodarone. We'll discontinue the IV Lasix and initiate oral diuretics. From cardiology's perspective, patient may be able to be discharged home once cleared by the primary, and we will make him a follow-up appointment in the office post discharge. DNP note has been reviewed, I agree with a documented findings and plan of care. Patient was seen and examined.
--- NOTE | 2016-11-30 12:56 | P.CNPUL ---
History of Present Illness Consult date: 11/30/16 Reason for consult: dyspnea History of present illness: Pleasant 56-year-old male patient, morbidly obese, with previous history of obstructive sleep apnea currently on no treatment, also known to have congestion heart failure and various other comorbidities including a previous right lower extremity DVT and pulmonary embolism, hypertension and hyperlipidemia and a normal cardiac catheterization that was performed back in 2005. The patient apparently had symptoms of URI. His was having a rest or checked infection subsequently he himself started having congestion and cough. Following that he became progressively more short of breath, develop peripheral edema, orthopnea and worsening shortness of breath and for that reason he came into the emergency department. His EKG was showing a sinus tachycardia with a left bundle branch block pattern. Subsequently the patient went into atrial fibrillation with rapid ventricular response and currently is on amiodarone drip and IV heparin as part of management of his atrial fibrillation. Note that he was on Xarelto as part of treatment for his right lower extremities in DVT and pulmonary embolism and he has completed Xarelto on outpatient basis and he was taken off the endocrine examination December 2015. He had a low-grade fever at time of admission 100.0. His chest x-ray was consistent with congestion heart failure. He is proBNP level was 4540. Troponins are 0.4, 0.4 and 0.3 respectively 3. Hemoglobin is at 15.4 and a white cell count was 11.6. He has significant edema in lower extremities more so on the left and he has also superficial skin break/also admits anterior aspect of the left lower extremity the base being clean. This was attributed to trauma. He is diuresing well on IV Lasix. Is producing adequate amount of urine output. No new complaints otherwise for now. Review of Systems Constitutional: Reports fatigue, Reports fever, Reports lethargy, Reports weakness Eyes: denies blurred vision, denies bulging eye, denies decreased vision Ears: deny: decreased hearing, ear discharge, earache Ears, nose, mouth and throat: Denies headache, Denies sore throat Cardiovascular: Reports decreased exercise tolerance, Reports dyspnea on exertion, Reports orthopnea, Reports rapid heart beat, Reports shortness of breath Respiratory: Reports cough, Reports dyspnea Gastrointestinal: Denies abdominal pain, Denies diarrhea, Denies nausea, Denies vomiting Musculoskeletal: Denies myalgias Musculoskeletal: bilateral: ankle swelling, absent: ankle pain, ankle stiffness Integumentary: Reports wounds Neurological: Denies numbness, Denies weakness Psychiatric: Denies anxiety, Denies depression Endocrine: Denies fatigue, Denies weight change Past Medical History Past Medical History: Deep Vein Thrombosis (DVT), Hypertension, Osteoarthritis ( OA), Pneumonia, Pulmonary Embolus (PE) Additional Past Medical History / Comment(s): Morbid obese with a BMI of 54.7, history of obstructive sleep apnea, history of a right lower extremity DVT and pulmonary embolism, hypertension, hyperlipidemia, CHF felt to be of a nonischemic cardiomyopathy, osteoarthritis, colonic polyps, History of Any Multi-Drug Resistant Organisms: None Reported Past Surgical History: Bariatric Surgery, Heart Catheterization, Joint Replacement, Orthopedic Surgery Additional Past Surgical History / Comment(s): LAP BAND IN 2004 (BALLOON IS DEFLATED). rt shoulder surgery, raj knee arthroscopy, rt knee replacment, lt knee replacement, colonoscopy/polypectomy-benign. Past Anesthesia/Blood Transfusion Reactions: No Reported Reaction Additional Past Anesthesia/Blood Transfusion Reaction / Comment(s): was very itchy after spinal when rt knee was replaced Smoking Status: Never smoker - Past Family History Father Family Medical History: No Reported History Additional Family Medical History / Comment(s): heatly at ge 83 Mother Family Medical History: No Reported History Additional Family Medical History / Comment(s): health at age 82 Medications and Allergies Home Medications Medication Instructions Recorded Confirmed Type Gemfibrozil [Lopid] 600 mg PO HS 12/08/13 11/27/16 History Lisinopril [Zestril] 20 mg PO BID 12/08/13 11/27/16 History Metoprolol Succinate [Toprol XL] 50 mg PO HS 12/08/13 11/27/16 History amLODIPine [Norvasc] 5 mg PO DAILY 12/08/13 11/27/16 History hydrALAZINE HCL [Apresoline] 50 mg PO TID 12/08/13 11/27/16 History Aspirin 81 mg PO DAILY 08/28/14 11/27/16 History Multivitamin [Men's Multi-Vitamin] 1 tab PO DAILY 06/03/15 11/27/16 History Allergies Allergy/AdvReac Type Severity Reaction Status Date / Time No Known Allergies Allergy Verified 11/27/16 11:06 Physical Exam Vitals: Vital Signs Temp Pulse Resp BP Pulse Ox 11/30/16 12:00 75 19 132/60 93 L 11/30/16 08:00 99.4 F 74 19 126/59 92 L 11/30/16 03:58 74 18 131/60 90 L 11/30/16 00:00 98.0 F 78 18 133/65 94 L 11/29/16 20:00 98.2 F 86 18 130/59 92 L 11/29/16 15:37 98.2 F 83 18 132/63 90 L Intake and Output 11/29/16 11/30/16 11/30/16 22:59 06:59 14:59 Intake Total 420 723.098 372.229 Output Total 400 1575 400 Balance 20 -851.902 -27.771 Intake: Intake, IV Titration 723.098 192.229 Amount Amiodarone 450 mg In 183.871 151.051 Dextrose 5% in Water 250 ml @ 1 MG/MIN 33.33 mls/ hr IV .Q7H31M [facility] Rx#: [id number] Heparin Sodium,Porcine/ 439.227 41.178 D5w Pmx 25,000 unit In Dextrose/Water 1 500ml. bag @ 5.5 UNITS/KG/HR 19. 95 mls/hr IV .Q24H [facility] Rx #:[id number] ceFAZolin 2 gm In Sodium 100 Chloride 0.9% 100 ml @ 100 mls/hr IVPB Q8HR [facility] Rx#:[id number] Oral 420 180 Output: Urine 400 1575 400 Other: Voiding Method Urinal Urinal Urinal # Voids 1 Weight 183 kg Morbidly obese, calm and comfortable likely distress.Head exam was generally normal. There was no scleral icterus or corneal arcus. Mucous membranes were moist. Neck is short and supple and there is significant crowding of the posterior oropharynx. There is no goiter or neck masses. Lungs sounds are diminished and there is some bibasilar crackles. Heart sounds are irregular, positive S1-S2. No cervical murmurs appreciated. Overall heart sounds are distant. No right ventricular heave or thrill. Abdomen is obese soft nontender. Organs cannot be palpated. There is no direct tenderness. There is no rebound tenderness. There is no guarding. Extremities show +1-2 pitting edema bilaterally along with a superficial wound/ulcer over the anterior aspect of the left lower extremity with a based being clear. Pulses are diminished at the present. There is no cyanosis or clubbing at this point. Neurologically is awake and alert. Results - Laboratory Findings CBC and BMP: 11/30/16 05:53 11/30/16 05:53 PT/INR, D-dimer PT 15.0 sec (9.0-12.0) H 11/27/16 10:42 INR 1.5 (<1.2) H 11/27/16 10:42 D-Dimer 1.33 mg/L FEU (<0.60) H 11/28/16 11:44 Abnormal lab findings: Abnormal Labs 11/27/16 11/27/16 11/27/16 10:42 10:42 10:42 WBC 10.9 H MCHC 30.0 L RDW 16.7 H Neutrophils # 8.9 H Neutrophils # (Manual) Lymphocytes # 0.7 L Lymphocytes # (Manual) Nucleated RBCs PT 15.0 H INR 1.5 H APTT D-Dimer Carbon Dioxide BUN 30 H Glucose 114 H Calcium CK-MB (CK-2) Troponin I Albumin 3.2 L Urine Protein 11/27/16 11/27/16 11/27/16 10:42 11:45 14:44 WBC MCHC RDW Neutrophils # Neutrophils # (Manual) Lymphocytes # Lymphocytes # (Manual) Nucleated RBCs PT INR APTT D-Dimer Carbon Dioxide BUN Glucose Calcium CK-MB (CK-2) 2.6 H* 3.2 H* Troponin I 0.410 H* 0.433 H* Albumin Urine Protein 1+ H 11/28/16 11/28/16 11/28/16 00:53 05:42 11:44 WBC 11.6 H MCHC RDW 16.7 H Neutrophils # Neutrophils # (Manual) 9.7 H Lymphocytes # Lymphocytes # (Manual) 0.8 L Nucleated RBCs PT INR APTT D-Dimer 1.33 H Carbon Dioxide BUN Glucose Calcium CK-MB (CK-2) 3.4 H* Troponin I 0.397 H* Albumin Urine Protein 11/28/16 11/29/16 11/29/16 18:00 00:51 06:02 WBC MCHC 29.5 L RDW 16.4 H Neutrophils # Neutrophils # (Manual) Lymphocytes # 0.8 L Lymphocytes # (Manual) Nucleated RBCs PT INR APTT 32.9 H 37.7 H D-Dimer Carbon Dioxide BUN Glucose Calcium CK-MB (CK-2) Troponin I Albumin Urine Protein 11/29/16 11/29/16 11/30/16 06:02 15:54 05:53 WBC MCHC 29.0 L RDW 16.5 H Neutrophils # Neutrophils # (Manual) Lymphocytes # Lymphocytes # (Manual) 0.4 L Nucleated RBCs 2 H PT INR APTT 47.1 H D-Dimer Carbon Dioxide 33 H BUN 25 H Glucose 106 H Calcium CK-MB (CK-2) Troponin I Albumin Urine Protein 11/30/16 11/30/16 05:53 05:53 WBC MCHC RDW Neutrophils # Neutrophils # (Manual) Lymphocytes # Lymphocytes # (Manual) Nucleated RBCs PT INR APTT 51.2 H D-Dimer Carbon Dioxide BUN 21 H Glucose 107 H Calcium 8.3 L CK-MB (CK-2) Troponin I Albumin Urine Protein - Diagnostic Findings Chest x-ray: image reviewed Assessment and Plan Plan: Assessment 1 acute CHF exacerbation, probably triggered by an upper respiratory tract infection/bronchitis. The echocardiogram was repeated and the patient is found to have an ejection fraction of 40% to 50% with severely dilated right ventricle and estimated PA pressure of around 40. 2 mild aortic stenosis 3 morbid obesity 4 obstructive sleep apnea, by history 5 history of DVT/pulmonary embolism, without evidence of a recurrent event based on the follow-up CT angios the chest. 6 new onset atrial fibrillation with rapid ventricular response, currently on amiodarone drip and IV heparin 7 lower extremities edema 8 superficial stage I to 2 wound in the left lower extremity 9 hyperlipidemia 10 hypertension 11 osteoarthritis 12 previous history of lap band, unsuccessful in losing weight Plan Management of CHF and atrial fibrillation per cardiology. The patient is an amiodarone drip and this will be transitioned to oral amiodarone. The patient is also on anticoagulation with IV heparin and this will be transitioned to Eliquis for long-term anticoagulation. Continue diuretics. Outpatient sleep apnea evaluation. Local wound care. We'll follow.
[2016-11-30] MEDS: APIXABAN 5 MG TAB PO SCH ×2 (13:09→21:39)
[2016-11-30] MEDS: AMIODARONE 200 MG TAB PO SCH ×2 (13:10→21:38)
[2016-11-30] MEDS: FUROSEMIDE 40 MG TAB PO SCH (15:31)
[2016-11-30] MEDS: GEMFIBROZIL 600 MG TAB PO SCH (21:39)
[2016-11-30] MEDS: METOPROLOL SUCCINATE (ER) 50 MG TAB.ER.24H PO SCH (21:39)
[2016-12-01] MEDS: ASPIRIN 81 MG CHEW PO SCH (08:19)
[2016-12-01] MEDS: AMIODARONE 200 MG TAB PO SCH ×2 (08:19→15:19)
[2016-12-01] MEDS: FUROSEMIDE 40 MG TAB PO SCH ×2 (08:19→15:19)
[2016-12-01] MEDS: APIXABAN 5 MG TAB PO SCH (08:19)
[2016-12-01] MEDS: amLODIPine 5 MG TAB PO SCH (08:19)
[2016-12-01] MEDS: hydrALAZINE HCL 50 MG TAB PO SCH ×2 (08:19→15:19)
[2016-12-01] MEDS: LISINOPRIL 20 MG TAB PO SCH (08:19)
[2016-12-01] MEDS: ceFAZolin 2 GM in SODIUM CHLORIDE 0.9% 100 ML IVPB SCH (08:21)
[2016-12-01 09:24] LABS: Anisocytosis Slight; Basophils # (A) 0.1 k/uL (0-0.2); Basophils % (A) 1 %; CH 26.5; Eosinophils # (A) 0.2 k/uL (0-0.7); Eosinophils % (A) 4 %; HDW 3.86; HGB 14.8 gm/dL (13.0-17.5); Hypochromasia Marked; Luc % (Auto) 2; Lymphocytes # (A) 0.6 k/uL (1.0-4.8); Lymphocytes % (A) 12 %; MCH 26.6 pg (25.0-35.0); MCHC 29.1 g/dL (31.0-37.0); MCV 91.6 fL (80.0-100.0); Mean Platelet Volume 8.8; Monocytes # (A) 0.5 k/uL (0-1.0); Monocytes % (A) 9 %; Neutrophils # (A) 3.9 k/uL (1.3-7.7); Neutrophils % (A) 74 %; Poikilocytosis Slight; RBC 5.57 m/uL (4.30-5.90); RDW 16.3 % (11.5-15.5); WBC 5.3 k/uL (3.8-10.6); WBC (Perox) 5.41
[2016-12-01 09:30] LABS: Anion Gap 6 mmol/L; Blood Urea Nitrogen 15 mg/dL (9-20); Calcium 8.7 mg/dL (8.4-10.2); Carbon Dioxide 38 mmol/L (22-30); Chloride 96 mmol/L (98-107); Glucose 127 mg/dL (74-99); Non-African American GFR(MDRD) >60 (>60 ml/min/1.73 sqM); Potassium 4.2 mmol/L (3.5-5.1); Sodium 140 mmol/L (137-145)
[2016-12-01] MEDS: MULTIVITAMINS, THERA 1 EACH TAB PO SCH (11:22)
--- NOTE | 2016-12-01 15:05 | P.PN ---
Subjective Pleasant 56-year-old male patient, morbidly obese, with previous history of obstructive sleep apnea currently on no treatment, also known to have congestion heart failure and various other comorbidities including a previous right lower extremity DVT and pulmonary embolism, hypertension and hyperlipidemia and a normal cardiac catheterization that was performed back in 2005. The patient apparently had symptoms of URI. His was having a rest or checked infection subsequently he himself started having congestion and cough. Following that he became progressively more short of breath, develop peripheral edema, orthopnea and worsening shortness of breath and for that reason he came into the emergency department. His EKG was showing a sinus tachycardia with a left bundle branch block pattern. Subsequently the patient went into atrial fibrillation with rapid ventricular response and currently is on amiodarone drip and IV heparin as part of management of his atrial fibrillation. Note that he was on Xarelto as part of treatment for his right lower extremities in DVT and pulmonary embolism and he has completed Xarelto on outpatient basis and he was taken off the endocrine examination December 2015. He had a low-grade fever at time of admission 100.0. His chest x-ray was consistent with congestion heart failure. He is proBNP level was 4540. Troponins are 0.4, 0.4 and 0.3 respectively 3. Hemoglobin is at 15.4 and a white cell count was 11.6. He has significant edema in lower extremities more so on the left and he has also superficial skin break/also admits anterior aspect of the left lower extremity the base being clean. This was attributed to trauma. He is diuresing well on IV Lasix. Is producing adequate amount of urine output. No new complaints otherwise for now. The patient is seen again today 12/01/2016 in follow-up on the regular medical floor. He is currently sitting up in a chair at the bedside. He denies any worsening shortness of breath, cough or congestion. He is maintaining good O2 saturations in the low 90s on room air. Afebrile. No leukocytosis. Blood cultures reveal no growth, urine culture reveals no growth. He is maintained on oral diuretics now. Creatinine stable at 0.84. Objective - Vital Signs Vital signs: Vital Signs Temp 99.0 F 12/01/16 07:00 Pulse 75 12/01/16 07:00 Resp 16 12/01/16 08:00 BP 138/82 12/01/16 07:00 Pulse Ox 91 L 12/01/16 12:31 Intake & Output 11/30/16 12/01/16 12/01/16 18:59 06:59 18:59 Intake Total 709.229 100 Output Total 400 Balance 309.229 100 Intake: Intake, IV Titration 292.229 100 Amount Amiodarone 450 mg In 151.051 Dextrose 5% in Water 250 ml @ 1 MG/MIN 33.33 mls/ hr IV .Q7H31M [facility] Rx#: [id number] Heparin Sodium,Porcine/ 41.178 D5w Pmx 25,000 unit In Dextrose/Water 1 500ml. bag @ 5.5 UNITS/KG/HR 19. 95 mls/hr IV .Q24H [facility] Rx #:[id number] ceFAZolin 2 gm In Sodium 100 100 Chloride 0.9% 100 ml @ 100 mls/hr IVPB Q8HR [facility] Rx#:[id number] Oral 417 Output: Urine 400 Other: Voiding Method Urinal Urinal # Voids 1 - Exam Morbidly obese, calm and comfortable likely distress.Head exam was generally normal. There was no scleral icterus or corneal arcus. Mucous membranes were moist. Neck is short and supple and there is significant crowding of the posterior oropharynx. There is no goiter or neck masses. Lungs sounds are diminished and there is some bibasilar crackles. Heart sounds are irregular, positive S1-S2. No cervical murmurs appreciated. Overall heart sounds are distant. No right ventricular heave or thrill. Abdomen is obese soft nontender. Organs cannot be palpated. There is no direct tenderness. There is no rebound tenderness. There is no guarding. Extremities show +1-2 pitting edema bilaterally along with a superficial wound/ulcer over the anterior aspect of the left lower extremity with a based being clear. Pulses are diminished at the present. There is no cyanosis or clubbing at this point. Neurologically is awake and alert. - Labs CBC & Chem 7: 12/01/16 08:13 12/01/16 08:13 Labs: Abnormal Lab Results - Last 24 Hours (Table) 12/01/16 12/01/16 Range/Units 08:13 08:13 MCHC 29.1 L (31.0-37.0) g/dL RDW 16.3 H (11.5-15.5) % Lymphocytes # 0.6 L (1.0-4.8) k/uL Chloride 96 L (98-107) mmol/L Carbon Dioxide 38 H (22-30) mmol/L Glucose 127 H (74-99) mg/dL Microbiology - Last 24 Hours (Table) 11/27/16 10:42 Blood Culture - Preliminary Blood No Growth after 96 hours 11/27/16 14:44 Blood Culture - Preliminary Blood No Growth after 72 hours Assessment and Plan Plan: Assessment 1 acute CHF exacerbation, probably triggered by an upper respiratory tract infection/bronchitis. The echocardiogram was repeated and the patient is found to have an ejection fraction of 40% to 50% with severely dilated right ventricle and estimated PA pressure of around 40. 2 mild aortic stenosis 3 morbid obesity 4 obstructive sleep apnea, by history 5 history of DVT/pulmonary embolism, without evidence of a recurrent event based on the follow-up CT angios the chest. 6 new onset atrial fibrillation with rapid ventricular response, currently on oral amiodarone and apixaban 7 lower extremities edema 8 superficial stage I to 2 wound in the left lower extremity 9 hyperlipidemia 10 hypertension 11 osteoarthritis 12 previous history of lap band, unsuccessful in losing weight Plan The patient was seen and evaluated by Dr. Szymanski. He he is stable from the pulmonary standpoint. We'll continue with his current medications. He has been transitioned to oral amiodarone and anticoagulants in the form of Eliquis. He could follow-up in our office in 1-2 weeks' time. We'll repeat a chest x- ray then.
[2016-12-01 15:21] VITALS: BP 134/76; PULSE 81; RESP 14; TEMP 98.5
--- NOTE | 2016-12-01 17:40 | P.PN ---
Subjective Personal being dictated for Dr. Judd. 11/29/2016 Interval history: This is a 56-year-old gentleman admitted with acute CHF exacerbation, cellulitis and multiple other medical issues. Patient has history of DVT and PE, states that Xarelto was discontinued approximately 1 year ago. Chest CTA Limited study, reporting large central embolus possibly with possible peripheral emboli, scattered pulmonary nodules and basilar compressive atelectasis. Maintained on heparin drip and Lasix IV push. Diuresing well with 24-hour I&O reflecting a negative fluid balance. Any bleeding with cane to bathroom, desats with exertion. Productive cough, green sputum. Denies chest pain, or palpitations. Afebrile. 11/30/2016 sitting up in chair, currently on both heparin and amiodarone drip. Last night when into SVT and has since converted to sinus rhythm. Amiodarone drip in the process of being converted over to oral as per cardiology. .Ambulating to and from bathroom, tolerating exertion well. Diuresing well on Lasix IV push with 24-hour I&O reflecting a negative fluid balance. Objective - Vital Signs Vital signs: Vital Signs Temp 99 F 11/30/16 15:30 Pulse 75 11/30/16 15:30 Resp 18 11/30/16 15:30 BP 127/62 11/30/16 15:30 Pulse Ox 93 L 11/30/16 15:30 Intake & Output 11/30/16 11/30/16 12/01/16 06:59 18:59 06:59 Intake Total 723.098 709.229 Output Total 1975 400 Balance -1251.902 309.229 Weight 183 kg Intake: Intake, IV Titration 723.098 292.229 Amount Amiodarone 450 mg In 183.871 151.051 Dextrose 5% in Water 250 ml @ 1 MG/MIN 33.33 mls/ hr IV .Q7H31M [facility] Rx#: [id number] Heparin Sodium,Porcine/ 439.227 41.178 D5w Pmx 25,000 unit In Dextrose/Water 1 500ml. bag @ 5.5 UNITS/KG/HR 19. 95 mls/hr IV .Q24H [facility] Rx #:[id number] ceFAZolin 2 gm In Sodium 100 100 Chloride 0.9% 100 ml @ 100 mls/hr IVPB Q8HR [facility] Rx#:[id number] Oral 417 Output: Urine 1975 400 Other: Voiding Method Urinal Urinal # Voids 1 - Exam PHYSICAL EXAM: VITAL SIGNS: As above GENERAL: [Sitting up in a chair, no acute distress] HEENT: [Pupils equal conjunctiva normal.] NECK: [Supple, positive JVD] RESPIRATORY EFFORT:[ mildly Increased] LUNGS: [Bilateral bases diminished, scattered rhonchi, fine bibasilar crackles , no wheezing] CARDIOVASCULAR[ regular S1 and S2, positive systolic murmur, no rubs or gallops , positive edema] GI: [Abdomen soft, nontender, positive bowel sounds.] PSYCH: [Alert and oriented -3, mood and affect normal.] SKIN: [Bilateral leg swelling with improving cellulitis NEURO: No focal deficits, moves all 4 extremities, strength and sensation grossly intact - Labs CBC & Chem 7: 12/01/16 08:13 12/01/16 08:13 Labs: Abnormal Lab Results - Last 24 Hours (Table) 11/30/16 11/30/16 11/30/16 Range/Units 05:53 05:53 05:53 MCHC 29.0 L (31.0-37.0) g/dL RDW 16.5 H (11.5-15.5) % Lymphocytes # (Manual) 0.4 L (1.0-4.8) k/uL Nucleated RBCs 2 H (0-0) /100 WBC APTT 51.2 H (22.0-30.0) sec BUN 21 H (9-20) mg/dL Glucose 107 H (74-99) mg/dL Calcium 8.3 L (8.4-10.2) mg/dL Microbiology - Last 24 Hours (Table) 11/27/16 14:44 Blood Culture - Preliminary Blood No Growth after 72 hours 11/27/16 10:42 Blood Culture - Preliminary Blood No Growth after 72 hours Assessment and Plan Plan: 1. [ Acute on chronic congestive heart failure, systolic dysfunction, EF 45-50%] . 2. [ Troponin 0.433, rule out acute non-STEMI]. 3. [ Acute cellulitis of Bilateral legs]. 4. [ Morbid obesity, BMI 54.2]. 5. [ Pulmonary embolism]. Plan: Continue on current medication regime , antibiotics, monitoring and symptomatic treatment. Continue on Lasix and heparin drip. . Potential anticoagulation with Eliquis, case management verifying outpatient coverage.Pulmonary recommendations noted. Maintain fluid restriction.Further recommendations to follow. The impression and plan of care has been dictated as directed. : I performed a H&P examination of this patient and discussed the same with the dictator. I agree with the dictator's note. Any additional findings/opinions/ etc. will be noted.
--- NOTE | 2016-12-03 12:41 | DS ---
FINAL DISCHARGE: 1. Congestive heart failure acute exacerbation with acute on chronic systolic dysfunction, ejection fraction 40 to 50%. 2. Troponin 0.433 indeterminate. 3. Acute cellulitis of the lateral legs. 4. Morbid obesity of 54.2. 5. History of pulmonary embolism. DISCHARGE DISPOSITION: Patient will be discharged in stable condition with guarded prognosis. HISTORY OF PRESENT ILLNESS: This 56-year-old gentleman who was admitted with CHF acute exacerbation was treated with diuretics. The patient improved significantly. Antibiotics also given. On exam, vitals are stable. Cardiovascular: S1, S2. Abdomen: Soft. Nervous System: No focal deficits. Total time taken 35 minutes. DISCHARGE ADVICE AND MEDICATIONS: 1. Diet is cardiac. 2. Activity limited until follow up. 3. Fluid restriction of 1500 mL per 24 hours. 4[address] Follow with Dr. Aguero in 2 to 3 days. 5. CBC and CMP followed. 6. Follow with linotypist as recommended. 7. Medications are: Cordarone 200 mg p.o t.i.d. for 7 days and then b.i.d. for 7 days and follow with Cardiology. 8. Norvasc 5 mg p.o. daily. 9. Eliquis 5 mg p.o. b.i.d. 10. Aspirin 81 mg p.o. daily. 11. Lasix 40 mg p.o. b.i.d. 12. Lopid 600 mg q.h.s. 13. Apresoline 50 mg p.o. t.i.d. 14. Zestril 10 mg 20 mg b.i.d. 15. Toprol XL 50 mg q.h.s. 16. Multivitamin 1 p.o. daily. 17. local application. Once again the patient will be discharged in stable condition with guarded prognosis. MTDD
== END 2016-12-01 15:36 | disposition home or self-care (01) | DRG 292 ==
LOC: EC 10:18 → 6SEL 13:11 → 4MS4W 11-30 18:01
PROVIDERS: ADMIT Internal Medicine; ATTEND Internal Medicine
DX: I11.0 Hypertensive heart disease with heart failure (principal); L03.115 Cellulitis of right lower limb; Z68.43 Body mass index [BMI] 50.0-59.9, adult; L03.116 Cellulitis of left lower limb; I42.9 Cardiomyopathy, unspecified; I48.92 Unspecified atrial flutter; I47.1 Supraventricular tachycardia; I50.23 Acute on chronic systolic (congestive) heart failure; E66.01 Morbid (severe) obesity due to excess calories; Z71.3 Dietary counseling and surveillance; M19.91 Primary osteoarthritis, unspecified site; E78.5 Hyperlipidemia, unspecified; I35.0 Nonrheumatic aortic (valve) stenosis; I44.7 Left bundle-branch block, unspecified; J06.9 Acute upper respiratory infection, unspecified; G47.33 Obstructive sleep apnea (adult) (pediatric); I48.91 Unspecified atrial fibrillation; Z79.82 Long term (current) use of aspirin; Z79.899 Other long term (current) drug therapy; Z86.718 Personal history of other venous thrombosis and embolism; Z86.711 Personal history of pulmonary embolism; Z98.84 Bariatric surgery status; Z87.01 Personal history of pneumonia (recurrent); Z86.010 Personal history of colon polyps; Z96.653 Presence of artificial knee joint, bilateral
CPT/HCPCS: 36415; 71010; 71020; 71275; 80048; 80053; 81001; 82550; 82553; 83605; 83735; 83880; 84484; 85025; 85379; 85610; 85730; 87040; 87086; 93005; 93306; 94640; 94760

== ENCOUNTER 2019-02-07 15:26 | Emergency (ER) | payer MEDICARE ==
[2019-02-07 15:33] VITALS: TEMP 98.2
[2019-02-07] MEDS ORDERED: DIAZEPAM 5 MG/ML 2 ML INJ IVP STA (17:00)
--- NOTE | 2019-02-07 17:00 | ED ---
Dizziness HPI - General Chief Complaint: Dizziness Stated Complaint: Vertigo Time Seen by Provider: 02/07/19 15:30 Source: patient, EMS Mode of arrival: EMS Limitations: physical limitation - History of Present Illness Initial Comments: The patient is a 58-year-old male with past history of DVT, PE and hypertension who presents to the emergency department by EMS for reported vertigo. He states that approximately at 2:30 PM he had sudden onset of room spinning. Reports that it made him feel nauseated. He did attempt to get up and ambulate which ma de the dizziness worse. Reports that he was unable to stand up straight because of his symptoms. No history of similar in the past. Denies any head trauma. No headaches or visual changes. Denies any unilateral numbness or weakness. No reported confusion or slurred speech or facial droop from the family. No photophobia, neck pain, fevers or chills. He did call EMS. He denies any chest pain or shortness of breath. No vision loss. No ripping or tearing sensation to his back. Denies any abdominal pain. There are no other alleviating, precipitating or modifying factors - Related Data Home Medications Medication Instructions Recorded Confirmed Gemfibrozil [Lopid] 600 mg PO HS 12/08/13 02/07/19 Lisinopril [Zestril] 20 mg PO BID 12/08/13 02/07/19 Metoprolol Succinate [Toprol XL] 50 mg PO HS 12/08/13 02/07/19 hydrALAZINE HCL [Apresoline] 50 mg PO TID 12/08/13 02/07/19 Furosemide [Lasix] 40 mg PO DAILY 02/07/19 02/07/19 Previous Rx's Medication Instructions Recorded Apixaban [Eliquis] 5 mg PO BID #1 tab 12/01/16 Meclizine [Antivert] 25 mg PO TID PRN #15 tab 02/07/19 Allergies Allergy/AdvReac Type Severity Reaction Status Date / Time No Known Allergies Allergy Verified 02/07/19 16:46 Review of Systems ROS Statement: Those systems with pertinent positive or pertinent negative responses have been documented in the HPI. ROS Other: All systems not noted in ROS Statement are negative. Past Medical History Past Medical History: Deep Vein Thrombosis (DVT), Hypertension, Osteoarthritis (OA), Pneumonia, Pulmonary Embolus (PE) Additional Past Medical History / Comment(s): Morbid obese with a BMI of 54.7, history of obstructive sleep apnea, history of a right lower extremity DVT and pulmonary embolism, hypertension, hyperlipidemia, CHF felt to be of a nonischemic cardiomyopathy, osteoarthritis, colonic polyps, History of Any Multi-Drug Resistant Organisms: None Reported Past Surgical History: Bariatric Surgery, Heart Catheterization, Joint Replacement, Orthopedic Surgery Additional Past Surgical History / Comment(s): LAP BAND IN 2004 (BALLOON IS DEFLATED). rt shoulder surgery, raj knee arthroscopy, rt knee replacment, lt knee replacement, colonoscopy/polypectomy-benign. Past Anesthesia/Blood Transfusion Reactions: No Reported Reaction Additional Past Anesthesia/Blood Transfusion Reaction / Comment(s): was very itchy after spinal when rt knee was replaced Past Psychological History: No Psychological Hx Reported Smoking Status: Never smoker Past Alcohol Use History: Occasional Past Drug Use History: None Reported - Past Family History Father Family Medical History: No Reported History Additional Family Medical History / Comment(s): heatly at ge 83 Mother Family Medical History: No Reported History Additional Family Medical History / Comment(s): health at age 82 General Exam Limitations: physical limitation General appearance: alert, in no apparent distress Head exam: Present: atraumatic, normocephalic, normal inspection Eye exam: Present: normal appearance, PERRL, EOMI. Absent: scleral icterus, conjunctival injection, periorbital swelling ENT exam: Present: normal exam, mucous membranes moist Neck exam: Present: normal inspection. Absent: tenderness, meningismus, lymphad enopathy Respiratory exam: Present: normal lung sounds bilaterally. Absent: respiratory distress, wheezes, rales, rhonchi, stridor Cardiovascular Exam: Present: regular rate, normal rhythm, normal heart sounds. Absent: systolic murmur, diastolic murmur, rubs, gallop, clicks GI/Abdominal exam: Present: soft, normal bowel sounds. Absent: distended, tenderness, guarding, rebound, rigid Extremities exam: Present: normal inspection, full ROM, normal capillary refill. Absent: tenderness, pedal edema, joint swelling, calf tenderness Back exam: Present: normal inspection Neurological exam: Present: alert, oriented X3, CN II-XII intact, reflexes n ormal (finger to nose is symmetric bilaterally. No dysdiodokinesia ), other Psychiatric exam: Present: normal affect, normal mood Skin exam: Present: warm, dry, intact, normal color. Absent: rash Course Vital Signs 02/07/19 02/07/19 15:29 19:38 Temperature 98.2 F Pulse Rate 69 79 Respiratory 16 20 Rate Blood Pressure 124/65 127/68 O2 Sat by Pulse 96 95 Oximetry EKG Findings - EKG Comments: EKG Findings:: EKG demonstrates a normal sinus rhythm with a ventricular rate of 76. VT interval 188. QRS 162. QTC 463. There is a left bundle branch block. This was seen on previous EKG. No sgarbossa criteria met. Medical Decision Making - Medical Decision Making Upon arrival the patient was placed into room 25. A thorough history and physical exam was performed. The EKG was performed which demonstrates a left bundle branch block. This is compared with the patient's previous EKG and is similar. Peripheral IV was established. He was given 5 of Valium IV. I did conduct laboratory studies and the patient was sent for CT angios of his head and neck. CBC is unremarkable. CMP shows a glucose of 183. CT of the head and neck demonstrates very minimal constipation at the carotid artery bifurcations. I did reevaluate the patient. He continues to report minimal vertiginous symptoms. I did recommend treatment with meclizine. Patient is then reev aluated. States he is able to get to the bathroom ambulate. As the patient does have some persistence of his symptoms, I did recommend evaluation by ENT and neurology. Neurology is not available hospital and therefore recommended transfer. The patient refused stating he wanted to go home at this time. States if he has return of his symptoms, he would come back to the emergency room. Did discuss the severity of his condition and risks of leaving. The patient understood, was able to recite them in his own words and wanted to continue to leave. I did provide the patient with prescription for meclizine. He did provide him with follow-up information for Dr. Hicks's office as well as Dr. Donovan. He has any new or worsening symptoms, or increased hospital admission he should return to the emergency room. He was discharged home in stable condition - Lab Data Result diagrams: 02/07/19 17:14 02/07/19 17:14 Lab Results 10/04/19 10/04/19 Range/Units 17:14 17:14 WBC 8.2 (3.8-10.6) k/uL RBC 4.95 (4.30-5.90) m/uL Hgb 14.9 (13.0-17.5) gm/dL Hct 46.1 (39.0-53.0) % MCV 93.2 (80.0-100.0) fL MCH 30.2 (25.0-35.0) pg MCHC 32.4 (31.0-37.0) g/dL RDW 14.3 (11.5-15.5) % Plt Count 242 (150-450) k/uL Neutrophils % 80 % Lymphocytes % 11 % Monocytes % 5 % Eosinophils % 2 % Basophils % 0 % Neutrophils # 6.6 (1.3-7.7) k/uL Lymphocytes # 0.9 L (1.0-4.8) k/uL Monocytes # 0.4 (0-1.0) k/uL Eosinophils # 0.1 (0-0.7) k/uL Basophils # 0.0 (0-0.2) k/uL Sodium 139 (137-145) mmol/L Potassium 4.3 (3.5-5.1) mmol/L Chloride 107 (98-107) mmol/L Carbon Dioxide 23 (22-30) mmol/L Anion Gap 9 mmol/L BUN 19 (9-20) mg/dL Creatinine 0.87 (0.66-1.25) mg/dL Est GFR (CKD-EPI)AfAm >90 (>60 ml/min/1.73 sqM) Est GFR (CKD-EPI)NonAf >90 (>60 ml/min/1.73 sqM) Glucose 183 H (74-99) mg/dL Calcium 9.1 (8.4-10.2) mg/dL Total Bilirubin 0.3 (0.2-1.3) mg/dL AST 25 (17-59) U/L ALT 30 (21-72) U/L Alkaline Phosphatase 110 (38-126) U/L Total Protein 7.3 (6.3-8.2) g/dL Albumin 3.8 (3.5-5.0) g/dL Disposition Clinical Impression: Vertigo Disposition: HOME SELF-CARE Condition: Serious Instructions (If sedation given, give patient instructions): Dizziness (ED) Additional Instructions: Please follow-up with your primary care doctor in 2-4 days. Return to the ER for any new or worsening symptoms or agree to hospital admission. You should follow-up with an ear nose and throat doctor as well as a neurologist. Prescriptions: Meclizine [Antivert] 25 mg PO TID PRN #15 tab PRN Reason: Vertigo Is patient prescribed a controlled substance at d/c from ED?: No Referrals: Jos Aguero III, MD [Primary Care Provider] - 1-2 days Nadia Talavera MD [STAFF PHYSICIAN] - 1-2 days Corona Hicks MD [STAFF PHYSICIAN] - 1-2 days Time of Disposition: 19:28
[2019-02-07 17:37] LABS: Basophils % (A) 0 %; Eosinophils # (A) 0.1 k/uL (0-0.7); Eosinophils % (A) 2 %; HCT 46.1 % (39.0-53.0); HGB 14.9 gm/dL (13.0-17.5); Lymphocytes # (A) 0.9 k/uL (1.0-4.8); Lymphocytes % (A) 11 %; MCH 30.2 pg (25.0-35.0); MCHC 32.4 g/dL (31.0-37.0); MCV 93.2 fL (80.0-100.0); Mean Platelet Volume 7.3; Monocytes # (A) 0.4 k/uL (0-1.0); Monocytes % (A) 5 %; Neutrophils # (A) 6.6 k/uL (1.3-7.7); Neutrophils % (A) 80 %; Platelet Count 242 k/uL (150-450); RBC 4.95 m/uL (4.30-5.90); RDW 14.3 % (11.5-15.5); WBC 8.2 k/uL (3.8-10.6)
[2019-02-07 17:48] LABS: ALT 30 U/L (21-72); AST 25 U/L (17-59); African American GFR (CKD) >90 (>60 ml/min/1.73 sqM); Albumin 3.8 g/dL (3.5-5.0); Alkaline Phosphatase 110 U/L (38-126); Anion Gap 9 mmol/L; Blood Urea Nitrogen 19 mg/dL (9-20); Calcium 9.1 mg/dL (8.4-10.2); Carbon Dioxide 23 mmol/L (22-30); Chloride 107 mmol/L (98-107); Glucose 183 mg/dL (74-99); Non-African American GFR(CKD) >90 (>60 ml/min/1.73 sqM); Potassium 4.3 mmol/L (3.5-5.1); Sodium 139 mmol/L (137-145); Total Bilirubin 0.3 mg/dL (0.2-1.3); Total Protein 7.3 g/dL (6.3-8.2)
[2019-02-07] MEDS ORDERED: MECLIZINE 12.5 MG TAB PO STA (18:10)
--- NOTE | 2019-02-07 18:30 | CT ---
EXAMINATION TYPE: CT angio head neck DATE OF EXAM: 02/07/2019 HISTORY: Dizziness COMPARISON: None CT DLP: 2112.8 mGycm. Automated Exposure Control for Dose Reduction was Utilized. TECHNIQUE: CTA scan of the neck is performed with IV Contrast, patient injected with 65 mL of Isovue 300, axial images are obtained, coronal and sagittal reformatted images are reviewed. Three-D recons tructed images are created on an independent workstation and reviewed. FINDINGS: The noncontrast images of the brain show normal ventricles. There is no mass effect nor midline shift . There is no sign of intracranial hemorrhage. There is normal branching pattern of the great vessels on the aortic arch. There is bilateral arteria l flow in the subclavian arteries. There is arterial flow in the common internal and external carotid arteries bilaterally. There is minimal plaque formation at the left carotid artery and right carotid artery bifurcation. There is arterial flow in both vertebral arteries which are fairly symmetric. Th ere is no evidence of carotid or vertebral artery aneurysm or dissection. I see no evidence of hemody namic stenosis of the carotid and vertebral arteries. There is arterial flow in the anterior middle and posterior cerebral arteries. There is arterial flow in the vertebrobasilar artery system. I see no evidence of intracranial arterial stenosis. There is no evidence of aneurysm or neovascularity. There is no mass effect. There is normal contrast opacific ation of the venous sinuses. IMPRESSION: There is very minimal calcification at the carotid artery bifurcations. No evidence of any significan t stenosis. No intracranial angiographic abnormality.
[2019-02-07 19:39] VITALS: BP 127/68; PULSE 79; RESP 20
== END 2019-02-07 19:40 | disposition home or self-care (01) ==
LOC: EC 15:26
DX: R42 Dizziness and giddiness (principal); R11.0 Nausea; I44.7 Left bundle-branch block, unspecified; I11.0 Hypertensive heart disease with heart failure; I50.9 Heart failure, unspecified; M19.90 Unspecified osteoarthritis, unspecified site; E66.01 Morbid (severe) obesity due to excess calories; Z68.43 Body mass index [BMI] 50.0-59.9, adult; Z79.899 Other long term (current) drug therapy; Z95.5 Presence of coronary angioplasty implant and graft; Z98.84 Bariatric surgery status; Z86.718 Personal history of other venous thrombosis and embolism; Z86.711 Personal history of pulmonary embolism; Z96.653 Presence of artificial knee joint, bilateral
CPT/HCPCS: 36415; 93005; 80053; 85025; 70496; 70498; 99284; 96374; J3360; Q9967

== ENCOUNTER → 2019-10-16 | Outpatient (CLI) | payer MEDICARE ==
--- NOTE | 2019-10-20 11:01 | ENG ---
ELECTRONYSTAGMOGRAM REPORT VNG INDICATIONS: Vertigo which occurred in the fall of 2018, sudden onset, improving. Last spell severe symptoms was last fall 2018. Denies any positional changes causing dizziness. At the time of his vertigo, he was having fullness in the left ear, but not now. Denies any difficulty with hearing. Has lightheaded sensation from time to time. VNG FINDINGS: Saccades shows intact peak velocities accuracies and latencies. Gaze with fixation shows no nystagmus in any of the directions of gaze including centrally with vision denied. Tracking shows occasional break-ups, otherwise fairly smooth. Static position testing in the seated, supine, head right and head left position shows no nystagmus. Dynamic position testing could not be completed. Caloric testing shows no weakness. IMPRESSION: Normal VNG study. MMODL / IJN: [id number] /
== END | disposition home or self-care (01) ==
LOC: NEUROMAIN 07:51
PROVIDERS: ATTEND Otolaryngology
DX: R42 Dizziness and giddiness (principal)
CPT/HCPCS: 92537; 92540

== ENCOUNTER → 2019-10-27 | Outpatient (CLI) | payer MEDICARE ==
--- NOTE | 2019-10-28 07:52 | CT ---
EXAMINATION TYPE: CT iac wo con DATE OF EXAM: 10/27/2019 COMPARISON: None HISTORY: hearing loss, vertigo CT DLP: 111.5mGycm Automated exposure control for dose reduction was used. FINDINGS: The external auditory canals are patent bilaterally. Mastoid air cells show no evidence of abnormal opacification bilaterally. The middle ear ossicles are symmetric and unremarkable. There is no evidence of suspicious surrounding soft tissue density to suggest cholesteatoma. The scutum is preserved bilaterally. The cochlea and the semicircular canals are symmetric and unremarkable. Ves tibular aqueduct and internal carotid canal appear unremarkable. Temporomandibular joints are mainta ined bilaterally. IMPRESSION: No significant abnormality seen to account for patient's symptoms.
== END | disposition home or self-care (01) ==
LOC: RADCTMAIN 19:22
PROVIDERS: ATTEND Otolaryngology
DX: H91.90 Unspecified hearing loss, unspecified ear (principal); R42 Dizziness and giddiness
CPT/HCPCS: 70480

== ENCOUNTER → 2020-10-11 | Outpatient (CLI) | payer MEDICARE ==
--- NOTE | 2020-10-11 08:31 | CT ---
EXAMINATION TYPE: CT iac wo/w con DATE OF EXAM: 10/11/2020 COMPARISON: CT IAC October 27, 2019 HISTORY: Vertigo for [address] DLP: 285.40 mGycm. Automated Exposure Control for Dose Reduction was Utilized. TECHNIQUE: CT scan of internal auditory canal is performed without and with IV contrast, thin cut axi al images are obtained, coronal reformatted images are also reviewed. Patient injected with 100 cc o f Isovue-300. FINDINGS: The external auditory canals remain patent bilaterally. Mastoid air cells show no evidence of new abnormal opacification bilaterally. The middle ear ossicles remain symmetric and within normal limits. There is no evidence of suspiciou s surrounding soft tissue density to suggest cholesteatoma. The scutum is preserved bilaterally. The cochlea and the semicircular canals remain symmetric and unremarkable. Vestibular aqueduct and i nternal carotid canal appear unremarkable. Temporomandibular joints are maintained bilaterally. Visualized paranasal sinuses are grossly clear. Visualized portion brain parenchyma is felt within normal limits. No suspicious enhancement is seen. IMPRESSION: No significant abnormality seen to account for patient's symptoms. No significant change from prior.
== END | disposition home or self-care (01) ==
LOC: RADCTMAIN 07:32
PROVIDERS: ATTEND Otolaryngology
DX: R42 Dizziness and giddiness (principal)
CPT/HCPCS: 70482; Q9967